=== PATIENT | male | born 1960 | race Caucasian/White ===

== ENCOUNTER 2018-01-10 11:28 | Emergency (ER) | payer BC, MEDICAID ==
--- NOTE | 2018-01-10 14:42 | RAD ---
HISTORY: Subacute trauma, visual changes COMPARISONS: None TECHNIQUE: Multiple contiguous axial CT scans were obtained of the head without intravenous contrast. FINDINGS: HEMORRHAGE/INFARCT: There is no hemorrhage or acute infarct. MASSES/SHIFT: There is no mass or shift. EXTRA-AXIAL SPACES: There are no extra-axial fluid collections. SULCI AND VENTRICLES: The sulci and ventricles are normal in size and position for the patient's stated age. CEREBRUM: There are no focal parenchymal abnormalities. BRAINSTEM: There are no focal parenchymal abnormalities. CEREBELLUM: There are no focal parenchymal abnormalities. VESSELS: The vessels are grossly normal. PARANASAL SINUSES: The paranasal sinuses are clear. ORBITS: The orbits are unremarkable. BONES AND SOFT TISSUE: No bone or soft tissue abnormalities are noted. OTHER: None IMPRESSION: NO ACUTE INTRACRANIAL PATHOLOGY.
--- NOTE | 2018-01-10 15:02 | UC ---
Que Martines Jennifer, scrib[facility] MD on 01/10/18 at 1333 . Headache HPI - HPI Summary HPI Summary: In Room: The patient is a 57 year old male who presents with floaters and flashing light to his vision after falling two weeks ago. The patient reports no loss of consciousness when he fell. He states that a few days after falling, he had a slight, dull headache that usually worsened at night. However, over time, the floaters and flashing light got worse in his left eye. He describes the floaters are varied and can look like small half circles or lines. He occasionally sees the flashes of light in his peripheral vision and in certain situations, but it has decreased in frequency. The patient used saline eyedrops , which helped. He adds that sunglasses and cheater glasses sometimes help, but the symptoms havent completely gone away. The patient additionally complains of some cramping in his lower abdomen, especially after a meal. MD Note: Vital signs stable. BP elevated. 5/10 discomfort, headache. Nurse note: "floaters" and yellow flashes to vision and dull intermittent PERALTA, to left and lateral head and eyes, post head injury approx 2 weeks ago to back of head. symptoms more prone to night-time. Great fatigue. deies dizziness.FLoaters improved with cheater glasses. - History Of Current Complaint Chief Complaint: UCHeadInjury Stated Complaint: EYE COMPLAINT Time Seen by Provider: 01/10/18 13:23 Hx Obtained From: Patient Onset/Duration: Sudden Onset, Lasting Weeks - one week, Still Present Onset Of Symptoms: Gradual, Still Present Initially Headache Was: Mild Currently Pain Is: Mild Pain Intensity: 5 Pain Scale Used: 0-10 Numeric Timing: Intermittent, Lasting: - worsens at night Character: Dull Aggravating Factor(s): Nothing Allevating Factor(s): Nothing Associated Signs And Symptoms: Positive: Other (Noted In Comments) - sees "floaters" and "flashing lights" in his peripheral vision of left eye; dull headache; lower abdominal cramping - Allergies/Home Medications Allergies/Adverse Reactions: Allergies Allergy/AdvReac Type Severity Reaction Status Date / Time Penicillins Allergy hives, Verified 01/10/18 12:02 difficulty breathing Home Medications: Home Medications NK [No Home Medications Reported] 01/10/18 [History Confirmed 01/10/18] PMH/Surg Hx/FS Hx/Imm Hx Previously Healthy: Yes - NEG: HTN, DM GI/ History: Other Other GI/ History: IBS - Surgical History Surgical History: None - Family History Known Family History: Positive: Other - [place] - father - Social History Occupation: Unemployed Lives: Alone Alcohol Use: Rare Substance Use Type: None Smoking Status (MU): Never Smoked Tobacco Review of Systems Eyes: Other - sees "floaters" and "flashing light" in peripheral vision of left eye Gastrointestinal: Abdominal Pain - Cramping Neurological: Headache - Dull, worsens at night All Other Systems Reviewed And Are Negative: Yes Physical Exam - Summary Physical Exam Summary: Appearance: The patient is well-appearing, is in no pain distress, and is well- nourished. Eyes: EYE EXAM SHOWED NO EVIDENCE OF INJURY. FUNDUS WAS GROSSLY NORMAL, WAS THE REMAINDER OF THE EYE EXAM. HEAD: SLIGHT TENDERNESS OVER THE LEFT OCCIPITAL. ENT: The hearing is grossly normal, the pharynx is normal, and the TMs are normal. There is no muffled or hoarse voice. Neck: The neck is supple and there is no lymphadenopathy. Respiratory: The chest is nontender. The lungs are clear, there are normal breath sounds, and there is no respiratory distress. Cardiovascular: Heart is regular rate and rhythm. There is no murmur. Abdomen: The abdomen is soft and nontender. There is no organomegaly. Bowel sounds: present Musculoskeletal: Strength is intact. The patient moves all extremities. Neurological: The patient is alert. Psychological: The patient displays age appropriate behavior Skin: Negative for rashes. Triage Information Reviewed: Yes Vital Signs: Initial Vital Signs Temp 99 F 01/10/18 11:53 Pulse 71 01/10/18 11:53 Resp 16 01/10/18 11:53 BP 154/96 01/10/18 11:53 Pulse Ox 98 01/10/18 11:53 Vital Signs Reviewed: Yes Headache Course/Dx - Course Course Of Treatment: This is a 57 year old male with a history of closed head trauma without LOC, who comes in complains of floaters and some flashing lights in his left eye. The possibility of retinal detachment cant be ruled out. His CT Brain was normal. I discussed with the patient the need for follow up with ophthalmology. Hypertensive BP reading (154/96); patient referred to Dr. Sidhu now. Patient will drive there now. No home medications reported. - Differential Dx/Diagnosis Provider Diagnoses: Closed head trauma; visual disturbance of the left eye Discharge - Sign-Out/Discharge Documenting (check all that apply): Discharge - Discharge Plan Condition: Stable Disposition: HOME Patient Education Materials: Blurred Vision (ED), Visual Floaters (ED) [place]errals[place] [facility] [place]Outside] Additional Instructions: Your blood pressure reading today was 154/96, indicating HYPERTENSION/ PREHYPERTENSION. Establish with a new primary care provider and follow-up within 4 weeks for blood pressure readings and further evaluation. ~If you cant find a provider, try to check your blood pressure on your own and see if its above 120/80. If so , follow up for further evaluation and treatment. IF YOU NEED A HEALTH CARE PROVIDER CALL THERON CARLOS AT [facility] [place]: [phone] WE DISCUSSED: 1. I suspect you had a mild concussion when you fell. There is NO evidence of bleeding in your brain. 2. You are having floaters and flashes particularly in your left eye. This needs follow up with an doll eye setter. Call Dr. Sidhu: [phone] now. You MAY HAVE A RETINAL DETACHMENT. - Billing Disposition and Condition Condition: STABLE Disposition: HOME The documentation as recorded by the Que arevalo Jennifer accurately reflects the service I personally performed and the decisions made by me, Marc Gupta MD.
== END 2018-01-10 15:00 | disposition home or self-care (01) ==
LOC: UCEAST 11:28
DX: S09.90XA Unspecified injury of head, initial encounter (principal); W19.XXXA Unspecified fall, initial encounter; Y92.9 Unspecified place or not applicable; H53.9 Unspecified visual disturbance; Z88.0 Allergy status to penicillin
CPT/HCPCS: 70450; 99202; G0463

== ENCOUNTER 2018-06-20 16:50 | Emergency (ER) | payer OTHER ==
[2018-06-20 19:54] LABS: Urine Appearance Turbid; Urine Blood 2+ (Negative); Urine Color Yellow; Urine Ketones Negative (Negative); Urine Protein 2+(100 mg/dL) (Negative); Urine Red Blood Cell 3+(>10/hpf) (Absent); Urine Specific Gravity 1.009 (1.010-1.030); Urine Urobilinogen Negative (Negative); Urine White Blood Cell 3+(>20/hpf) (Absent)
[2018-06-20 20:08] LABS: EGFR Non-African American 78.8 (>60)
[2018-06-20] MEDS ORDERED: NS 0.9% 1000 ML* 1,000 ML IV ONE (20:12)
[2018-06-20] MEDS ORDERED: cefTRIAXone(*) 1 GM in NS 0.9% 50 ML* 50 ML IVPB ONE (20:20)
--- NOTE | 2018-06-20 20:21 | ED ---
Complaint/Male - History of Current Complaint Chief Complaint: EDUrogenitalProblems Time Seen by Provider: 06/20/18 19:07 - Allergies/Home Medications Allergies/Adverse Reactions: Allergies Allergy/AdvReac Type Severity Reaction Status Date / Time Penicillins Allergy hives, Verified 01/10/18 12:02 difficulty breathing PMH/Surg Hx/FS Hx/Imm Hx Infectious Disease History: No Infectious Disease History: Denies: Traveled Outside the [place] in Last 30 Days - Family History Known Family History: Positive: Other - [place] - father - Social History Alcohol Use: Rare Substance Use Type: Reports: None Smoking Status (MU): Never Smoked Tobacco Physical Exam Vital Signs On Initial Exam: Initial Vitals Temp Pulse Resp BP Pulse Ox 99 F 81 16 126/101 99 06/20/18 17:10 06/20/18 17:10 06/20/18 17:10 06/20/18 17:10 06/20/18 17:10 Diagnostics - Vital Signs Vital Signs Temp Pulse Resp BP Pulse Ox 06/20/18 17:10 99 F 81 16 126/101 99 - Laboratory Lab Results: Lab Results 06/20/18 06/20/18 Range/Units 19:30 19:43 Sodium 138 (135-145) mmol/L Potassium 3.9 (3.5-5.0) mmol/L Chloride 106 (101-111) mmol/L Carbon Dioxide 27 (22-32) mmol/L Anion Gap 5 (2-11) mmol/L BUN 8 (6-24) mg/dL Creatinine 0.98 (0.67-1.17) mg/dL Est GFR ( Amer) 95.4 (>60) Est GFR (Non-Af Amer) 78.8 (>60) BUN/Creatinine Ratio 8.2 (8-20) Glucose 85 (70-100) mg/dL Calcium 8.5 L (8.6-10.3) mg/dL Total Bilirubin 0.20 (0.2-1.0) mg/dL AST 12 L (13-39) U/L ALT 14 (7-52) U/L Alkaline Phosphatase 65 (34-104) U/L Total Protein 6.3 L (6.4-8.9) g/dL Albumin 3.3 (3.2-5.2) g/dL Globulin 3.0 (2-4) g/dL Albumin/Globulin Ratio 1.1 (1-3) Urine Color Yellow Urine Appearance Turbid Urine pH 5.0 (5-9) Ur Specific [place] 1.009 L (1.010-1.030) Urine Protein 2+(100 mg/dl) A (Negative) Urine Ketones Negative (Negative) Urine Blood 2+ A (Negative) Urine Nitrate Negative (Negative) Urine Bilirubin Negative (Negative) Urine Urobilinogen Negative (Negative) Ur Leukocyte Esterase 3+ A (Negative) Urine WBC (Auto) 3+(>20/hpf) A (Absent) Urine RBC (Auto) 3+(>10/hpf) A (Absent) Urine Bacteria Absent (Absent) Urine Glucose Negative (Negative) Urine Ascorbic Acid * A (Negative) Result Diagrams: 06/20/18 19:43 Lab Statement: Any lab studies that have been ordered have been reviewed, and results considered in the medical decision making process.
[2018-06-20 20:28] LABS: ABS Basophils 0.2 10^3/ul (0-0.2); ABS Eosinophils 0.1 10^3/ul (0-0.6); ABS Lymphocytes 2.2 10^3/ul (1.0-4.8); ABS Neutrophils 9.9 10^3/ul (1.5-7.7); ABS Nucleated RBC 0 10^3/ul; Eosinophil % 0.8 % (0-6); Hematocrit 32 % (42-52); Lymphocyte % 16.7 % (25-47); Mean Corpuscular HGB Conc 31 g/dl (31-36); Mean Corpuscular Hemoglobin 23 pg (27-31); Mean Corpuscular Volume 73 fL (80-94); Mean Platelet Volume 7.7 um3 (7.4-10.4); Nucleated Red Blood Cells % 0; Platelet Count 523 10^3/ul (150-450); Red Blood Count 4.45 10^6/ul (4.00-5.40); Red Cell Distribution Width 16 % (10.5-15); White Blood Count 13.4 10^3/ul (3.5-10.8)
--- NOTE | 2018-06-20 21:37 | ED ---
GI/ HPI - HPI Summary HPI Summary: Patient is a 58-year-old male who presents emergency department for ongoing urinary symptoms. Patient states he's been having ongoing symptoms of dysuria, frequency, hematuria over the last 3 weeks. Pt. states he saw his doctor and was placed on Cipro and then a course of macrobid. Pt. states he finished macrobid last week. Pt. states his PCP has schedule him for an outpt. kidney u/ s. Pt. presents tonight because he is still having dysuria and hematuria. He denies fever, chills, N/V. Pt. denies past medical history. He denies abdominal or flank pain. Symptoms are moderate in severity. No current modifying factors . - History of Current Complaint Chief Complaint: EDUrogenitalProblems Time Seen by Provider: 06/20/18 19:07 Stated Complaint: BLOOD IN URINE Hx Obtained From: Patient Pain Intensity: 0 - Allergy/Home Medications Allergies/Adverse Reactions: Allergies Allergy/AdvReac Type Severity Reaction Status Date / Time Penicillins Allergy hives, Verified 01/10/18 12:02 difficulty breathing PMH/Surg Hx/FS Hx/Imm Hx Previously Healthy: Yes Infectious Disease History: No Infectious Disease History: Denies: Traveled Outside the [place] in Last 30 Days - Family History Known Family History: Positive: Other - [place] - father - Social History Occupation: Employed Full-time Lives: Alone Alcohol Use: Rare Substance Use Type: Reports: None Smoking Status (MU): Never Smoked Tobacco Review of Systems Constitutional: Negative Negative: Fever, Chills Cardiovascular: Negative Respiratory: Negative Gastrointestinal: Negative Negative: Abdominal Pain, Vomiting, Diarrhea, Nausea Positive: burning, dysuria, frequency, hematuria. Negative: flank pain Neurological: Negative All Other Systems Reviewed And Are Negative: Yes Physical Exam Triage Information Reviewed: Yes Vital Signs On Initial Exam: Initial Vitals Temp Pulse Resp BP Pulse Ox 99 F 81 16 126/101 99 06/20/18 17:10 06/20/18 17:10 06/20/18 17:10 06/20/18 17:10 06/20/18 17:10 Vital Signs Reviewed: Yes Appearance: Positive: Well-Appearing - Pt. sitting up in chair in NAD. Pleasant. Mother present. Skin: Positive: Warm, Dry Head/Face: Positive: Normal Head/Face Inspection Eyes: Positive: Normal, EOMI Respiratory/Lung Sounds: Positive: Clear to Auscultation, Breath Sounds Present Cardiovascular: Positive: Normal, RRR Abdomen Description: Positive: Nontender, Soft. Negative: CVA Tenderness (R), CVA Tenderness (L) Neurological: Positive: Normal, CN Intact II-III Psychiatric: Positive: Affect/Mood Appropriate Diagnostics - Vital Signs Vital Signs Temp Pulse Resp BP Pulse Ox 06/20/18 21:22 100.5 F 76 16 142/87 99 06/20/18 17:10 99 F 81 16 126/101 99 - Laboratory Lab Results: Lab Results 06/20/18 06/20/18 06/20/18 Range/Units 19:30 19:43 19:43 WBC 13.4 H (3.5-10.8) 10^3/ul RBC 4.45 (4.00-5.40) 10^6/ul Hgb 10.0 L (14.0-18.0) g/dl Hct 32 L (42-52) % MCV 73 L (80-94) fL MCH 23 L (27-31) pg MCHC 31 (31-36) g/dl RDW 16 H (10.5-15) % Plt Count 523 H (150-450) 10^3/ul MPV 7.7 (7.4-10.4) um3 Neut % (Auto) 73.8 (38-83) % Lymph % (Auto) 16.7 L (25-47) % [place] % (Auto) 7.6 H (0-7) % Eos % (Auto) 0.8 (0-6) % Baso % (Auto) 1.1 (0-2) % Absolute Neuts (auto) 9.9 H (1.5-7.7) 10^3/ul Absolute Lymphs (auto) 2.2 (1.0-4.8) 10^3/ul Absolute Monos (auto) 1.0 H (0-0.8) 10^3/ul Absolute Eos (auto) 0.1 (0-0.6) 10^3/ul Absolute Basos (auto) 0.2 (0-0.2) 10^3/ul Absolute Nucleated RBC 0 10^3/ul Nucleated RBC % 0 Microcytosis 2+ Sodium 138 (135-145) mmol/L Potassium 3.9 (3.5-5.0) mmol/L Chloride 106 (101-111) mmol/L Carbon Dioxide 27 (22-32) mmol/L Anion Gap 5 (2-11) mmol/L BUN 8 (6-24) mg/dL Creatinine 0.98 (0.67-1.17) mg/dL Est GFR ( Amer) 95.4 (>60) Est GFR (Non-Af Amer) 78.8 (>60) BUN/Creatinine Ratio 8.2 (8-20) Glucose 85 (70-100) mg/dL Calcium 8.5 L (8.6-10.3) mg/dL Total Bilirubin 0.20 (0.2-1.0) mg/dL AST 12 L (13-39) U/L ALT 14 (7-52) U/L Alkaline Phosphatase 65 (34-104) U/L Total Protein 6.3 L (6.4-8.9) g/dL Albumin 3.3 (3.2-5.2) g/dL Globulin 3.0 (2-4) g/dL Albumin/Globulin Ratio 1.1 (1-3) Urine Color Yellow Urine Appearance Turbid Urine pH 5.0 (5-9) Ur Specific [place] 1.009 L (1.010-1.030) Urine Protein 2+(100 mg/dl) A (Negative) Urine Ketones Negative (Negative) Urine Blood 2+ A (Negative) Urine Nitrate Negative (Negative) Urine Bilirubin Negative (Negative) Urine Urobilinogen Negative (Negative) Ur Leukocyte Esterase 3+ A (Negative) Urine WBC (Auto) 3+(>20/hpf) A (Absent) Urine RBC (Auto) 3+(>10/hpf) A (Absent) Urine Bacteria Absent (Absent) Urine Glucose Negative (Negative) Urine Ascorbic Acid * A (Negative) Result Diagrams: 06/20/18 19:43 06/20/18 19:43 Lab Statement: Any lab studies that have been ordered have been reviewed, and results considered in the medical decision making process. GIGU Course/Dx - Course Course Of Treatment: Pt. presenting to the ER for ongoing urinary symptoms. Initial temperature is 99F, HR 81, BP elevated at 126/101. Clinically pt. is nontoxic and well appearing. Will check basic labs and urine. He has no flank or abd. pain. CBC shows leukocytosis of 13.4, H and H 10 and 32. CMP unremarkable other than mildly low Ca of 8.5. U/A is showsing elevated RBC, WBCs and luekocytes. Urine culture from 06/02 is growing e. coli. Based on culture will give a dose of IV rocephinan liter of NSS. 2121: Results discussed with pt. Repeat VS show low grade fever of 100.5F. Given failed outpt. antibx, fever, leukocytois advised pt. that admission for IV antibx and further evaluation would be in pt.'s best interest. Pt. states that he has a cat at home he has to take care of and that he would prefer to go home after IV antibx and try another course of PO antibx. Repeat temp is increasing. Concern for early sepsis. Strongly advised pt. to stay for admission. Pt. has decision making capacity and understands going home tonight the tooth systemic infection and . Patient states that he you will plan on taking his To his mother's house and return to the ER for admission later. Will have patient sign out AMA. - Diagnoses Differential Diagnoses - Male: Sepsis, Ureteral Calculi, Urinary Tract Infection Provider Diagnoses: UTI (urinary tract infection), Fever Discharge - Sign-Out/Discharge Documenting (check all that apply): Patient Departure - Discharge Plan Condition: Stable Disposition: AGAINST MEDICAL ADVICE Prescriptions: Cephalexin CAP* [Keflex CAP*] 500 mg PO QID #40 cap Patient Education Materials: Urinary Tract Infection in Men (ED) Referrals: Teddy Brody MD [Primary Care Provider] - Additional Instructions: It was recommended that you be admitted to the hospital tonight to continue IV antibiotics and for further evaluation Pick Antibiotic prescription first thing tomorrow morning and start as directed Call your family doctor tomorrow for a close follow-up appointment Increase fluids Tylenol or Motrin for fever as directed Return to the ER for ongoing fever, vomiting, increased pain - Billing Disposition and Condition Condition: STABLE Disposition: Against Medical Advice
[2018-06-20 22:24] VITALS: BP 141/77
== END 2018-06-20 22:31 | disposition left against medical advice (07) ==
LOC: ED 16:50
DX: N39.0 Urinary tract infection, site not specified (principal); R50.9 Fever, unspecified; R30.0 Dysuria
CPT/HCPCS: 36415; 80053; 81003; 81015; 85025; 86618; 87077; 87086; 87186; 96365; 99282; J0696

== ENCOUNTER 2018-06-21 01:53 | Emergency (ER) | payer OTHER ==
--- NOTE | 2018-06-21 03:57 | ED ---
GI/ HPI - HPI Summary HPI Summary: 58-year-old male presents for admission after or evaluation earlier in the night and found to have urinary tract infection. He states that for several days after discontinuing treatment for Escherichia coli UTI he began having symptoms again. He also noticed there is debris in his urine. He recently was on Macrobid for this. He has never had any pain in his abdomen or back. He was given a dose of IV Rocephin earlier tonight and then left AMA so he can take care of some things at home. He denies any chest pain, shortness of breath or vomiting. He has not had any history for cancers or kidney stone. He states that he only felt a brief episode where he had some shakes and chills and was found to have a fever then. He has no similar feelings now in his temperature on arrival was normal. - History of Current Complaint Chief Complaint: EDUrogenitalProblems Time Seen by Provider: 06/21/18 03:36 Stated Complaint: UROGENITAL PROBLEMS Hx Obtained From: Patient Timing: Intermittent Pain Intensity: 0 - Allergy/Home Medications Allergies/Adverse Reactions: Allergies Allergy/AdvReac Type Severity Reaction Status Date / Time bee venom protein (honey bee) Allergy Hives/Diff. Verified 06/21/18 02:52 Breathing/I tching Penicillins Allergy hives, Verified 06/21/18 01:58 difficulty breathing PMH/Surg Hx/FS Hx/Imm Hx Previously Healthy: Yes - recent Escherichia coli UTI - Immunization History Date of Tetanus Vaccine: unk Date of Influenza Vaccine: fall 2016 Infectious Disease History: No Infectious Disease History: Denies: Traveled Outside the [place] in Last 30 Days - Family History Known Family History: Positive: Other - [place] - father - Social History Occupation: Employed Full-time Alcohol Use: Rare Substance Use Type: Reports: None Smoking Status (MU): Never Smoked Tobacco Review of Systems Negative: Fever, Chills Negative: Chest Pain Negative: Abdominal Pain, Vomiting Positive: burning, dysuria. Negative: frequency, flank pain, hematuria All Other Systems Reviewed And Are Negative: Yes Physical Exam Triage Information Reviewed: Yes Vital Signs On Initial Exam: Initial Vitals Temp Pulse Resp BP Pulse Ox 97.8 F 85 16 116/75 98 06/21/18 01:58 06/21/18 01:58 06/21/18 01:58 06/21/18 01:58 06/21/18 01:58 Vital Signs Reviewed: Yes Appearance: Positive: Well-Appearing, No Pain Distress, Well-Nourished Skin: Positive: Warm, Skin Color Reflects Adequate Perfusion, Dry Eyes: Positive: Normal ENT: Positive: Normal ENT inspection Neck: Positive: Supple, Nontender Cardiovascular: Positive: RRR Abdomen Description: Positive: Nontender, No Organomegaly Male Genital Exam: Positive: Normal Genitalia, Other - Circumcised Musculoskeletal: Positive: Normal, Strength/ROM Intact, Other - No CVA tenderness Neurological: Positive: Normal, Sensory/Motor Intact, Alert, Oriented to Person Place, Time Psychiatric: Positive: Normal AVPU Assessment: Alert Diagnostics - Vital Signs Vital Signs Temp Pulse Resp BP Pulse Ox 06/21/18 01:58 97.8 F 85 16 116/75 98 - Laboratory Lab Statement: Any lab studies that have been ordered have been reviewed, and results considered in the medical decision making process. GIGU Course/Dx - Course Course Of Treatment: Well appearing patient with dirty urine earlier and elevated white blood cell count. His temperature is normal and he is in no distress. He is already been given Rocephin tonight. He will follow up closely with his primary care physician also was referred to urology in case urinary debris persist. In that case he may need cystoscopy or further imaging. The patient has no abdominal pain or flank pain that might be consistent with pyelonephritis or renal colic. - Diagnoses Differential Diagnoses - Male: Other - UTI, prostatitis, bladder mass, kidney mass, Provider Diagnoses: Acute urinary tract infection Discharge - Sign-Out/Discharge Documenting (check all that apply): Patient Departure - Discharge Plan Condition: Improved Disposition: HOME Prescriptions: Ciprofloxacin TAB* [Cipro 500 MG TAB*] 500 mg PO BID #42 tab Patient Education Materials: Urinary Tract Infection in Men (ED) Referrals: Gamaliel Ivy MD [Medical Doctor] - Teddy Brody MD [Primary Care Provider] - Additional Instructions: Call for an appointment with the urologist first thing in the morning. Drink plenty of fluids. Cranberry juice may help. Return with blood in the urine, abdominal pain, vomiting, fevers, worse or other concerns as discussed. Do not fill the cephalexin medication. Fill the ciprofloxacin. - Billing Disposition and Condition Condition: IMPROVED Disposition: Home - Attestation Statements Document Initiated by Adilsone: No
[2018-06-21 04:27] VITALS: BP 0/0
== END 2018-06-21 04:20 | disposition home or self-care (01) ==
LOC: ED 01:53
DX: N39.0 Urinary tract infection, site not specified (principal); B96.20 Unspecified Escherichia coli [E. coli] as the cause of diseases classified elsewhere; Z88.0 Allergy status to penicillin
CPT/HCPCS: 99282

== ENCOUNTER 2019-07-24 18:13 | Emergency (ER) | payer OTHER ==
[2019-07-24 19:39] LABS: ABS Lymphocytes 0.4 10^3/ul (1.0-4.8); ABS Monocytes 0.4 10^3/ul (0-0.8); Eosinophil % 0.3 %; Hematocrit 36 % (42-52); Hemoglobin 12.4 g/dL (14.0-18.0); Lymphocyte % 6.3 %; Mean Corpuscular HGB Conc 34 g/dL (31-36); Mean Corpuscular Hemoglobin 30 pg (27-31); Mean Corpuscular Volume 86 fL (80-94); Mean Platelet Volume 6.9 fL (7.4-10.4); Nucleated Red Blood Cells % 0.1; Platelet Count 323 10^3/uL (150-450); Red Blood Count 4.19 10^6 /uL (4.18-5.48); Red Cell Distribution Width 16 % (10-15); White Blood Count 6.8 10^3/uL (3.5-10.8)
[2019-07-24 19:54] LABS: Albumin 3.7 g/dL (3.2-5.2); Albumin/Globulin Ratio 1.4 (1-3); BUN/Creatinine Ratio 9.1 (8-20); C Reactive Protein 16.84 mg/L (<8.01); Calcium 8.7 mg/dL (8.6-10.3); EGFR African American 52.5 (>60); EGFR Non-African American 43.4 (>60); Globulin 2.6 g/dL (2-4); Potassium 3.9 mmol/L (3.5-5.0); Total Bilirubin 0.4 mg/dL (0.2-1.0); Total Protein 6.3 g/dL (6.4-8.9)
[2019-07-24 20:37] VITALS: BP 106/60
[2019-07-24 22:22] LABS: Urine Appearance Turbid; Urine Bacteria 1+ (Absent); Urine Bilirubin Negative (Negative); Urine Blood 3+ (Negative); Urine Color Yellow; Urine Glucose Negative (Negative); Urine Ketones Negative (Negative); Urine Nitrite Negative (Negative); Urine Protein 2+(100 mg/dL) (Negative); Urine Red Blood Cell 3+(>10/hpf) (Absent); Urine Urobilinogen Negative (Negative); Urine White Blood Cell 3+(>20/hpf) (Absent)
[2019-07-24] MEDS ORDERED: Cephalexin CAP* 500 MG PO ONE (22:39)
--- NOTE | 2019-07-24 22:52 | ED ---
HPI Febrile Illness - HPI Summary HPI Summary: Patient with history of colon cancer on chemotherapy currently complains of fever up to 102 today. Denies any pain, symptoms of illness, including cough, sore throat, CP, PERALTA, SOB, N/V/D, abdominal pain, change in urine, change in BM. - History of Current Complaint Chief Complaint: EDFever Time Seen by Provider: 07/24/19 21:25 Hx Obtained From: Patient Onset/Duration: Started Hours Ago Timing: Intermittent, Lasting Hours Initial Severity: Moderate Current Severity: None Pain Intensity: 0 Pain Scale Used: 0-10 Numeric Aggravating Factors: Unknown Associated Signs and Symptoms: Negative - Allergy/Home Medications Allergies/Adverse Reactions: Allergies Allergy/AdvReac Type Severity Reaction Status Date / Time amoxicillin Allergy Intermediate Fever Verified 04/29/19 09:03 bee venom protein (honey bee) Allergy Hives/Diff. Verified 04/29/19 09:03 Breathing/I tching Penicillins Allergy hives, Verified 04/29/19 09:03 difficulty breathing Home Medications: Home Medications Biotin 5,000 mcg PO DAILY 07/25/19 [History Confirmed 07/25/19] Gabapentin [Neurontin] 100 mg PO TID PRN 07/25/19 [History Confirmed 07/25/19] Pantoprazole Sodium 20 mg PO DAILY 07/25/19 [History Confirmed 07/25/19] Sertraline HCl [Zoloft] 50 mg PO DAILY 07/25/19 [History Confirmed 07/25/19] PMH/Surg Hx/FS Hx/Imm Hx Endocrine/Hematology History: Denies: Hx Diabetes Cardiovascular History: Denies: Hx Hypertension, Hx Pacemaker/ICD History: Denies: Hx Renal Disease Sensory History: Denies: Hx Hearing Aid Opthamlomology History: Denies: Hx Legally Blind EENT History: Denies: Hx Deafness Neurological History: Denies: Hx Dementia Psychiatric History: Denies: Hx Panic Disorder - Cancer History Cancer Type, Location and Year: malignant neoplasm of sigmoid colon - Surgical History Surgery Procedure, Year, and Place: [place] - Immunization History Date of Tetanus Vaccine: unk Date of Influenza Vaccine: fall 2016 Infectious Disease History: No Infectious Disease History: Denies: Traveled Outside the [place] in Last 30 Days - Family History Known Family History: Positive: Other - [place] - father - Social History Alcohol Use: None Substance Use Type: Reports: None Smoking Status (MU): Never Smoked Tobacco Review of Systems Positive: Fever Eyes: Negative ENT: Negative Cardiovascular: Negative Respiratory: Negative Gastrointestinal: Negative Genitourinary: Negative Musculoskeletal: Negative Skin: Negative Neurological: Negative Psychological: Normal All Other Systems Reviewed And Are Negative: Yes Physical Exam Triage Information Reviewed: Yes Vital Signs On Initial Exam: Initial Vitals Temp Pulse Resp BP Pulse Ox 100.9 F 133 20 135/97 98 07/24/19 18:13 07/24/19 18:13 07/24/19 18:13 07/24/19 18:13 07/24/19 18:13 Vital Signs Reviewed: Yes Appearance: Positive: Well-Appearing Skin: Positive: Warm Head/Face: Positive: Normal Head/Face Inspection Eyes: Positive: Normal ENT: Positive: Normal ENT inspection Neck: Positive: Supple Respiratory/Lung Sounds: Positive: Clear to Auscultation Cardiovascular: Positive: Normal Abdomen Description: Positive: Nontender Musculoskeletal: Positive: Normal Neurological: Positive: Normal Psychiatric: Positive: Normal AVPU Assessment: Alert - [place] Coma Scale Best Eye Response: 4 - Spontaneous Best Motor Response: 6 - Obeys Commands Best Verbal Response: 5 - Oriented Coma Scale Total: 15 Procedures - Sedation Patient Received Moderate/Deep Sedation with Procedure: No Diagnostics - Vital Signs Vital Signs Temp Pulse Resp BP Pulse Ox 07/24/19 20:25 99.2 F 91 16 106/60 97 07/24/19 18:13 100.9 F 133 20 135/97 98 - Laboratory Lab Results: Lab Results 07/24/19 07/24/19 07/24/19 Range/Units 19:28 19:28 19:28 WBC 6.8 (3.5-10.8) 10^3/uL RBC 4.19 (4.18-5.48) 10^6 /uL Hgb 12.4 L (14.0-18.0) g/dL Hct 36 L (42-52) % MCV 86 (80-94) fL MCH 30 (27-31) pg MCHC 34 (31-36) g/dL RDW 16 H (10-15) % Plt Count 323 (150-450) 10^3/uL MPV 6.9 L (7.4-10.4) fL Neut % (Auto) 87.1 % Lymph % (Auto) 6.3 % Real % (Auto) 6.0 % Eos % (Auto) 0.3 % Baso % (Auto) 0.3 % Absolute Neuts (auto) 6.0 (1.5-7.7) 10^3/ul Absolute Lymphs (auto) 0.4 L (1.0-4.8) 10^3/ul Absolute Monos (auto) 0.4 (0-0.8) 10^3/ul Absolute Eos (auto) 0.0 (0-0.6) 10^3/ul Absolute Basos (auto) 0.0 (0-0.2) 10^3/ul Absolute Nucleated RBC 0.0 10^3/ul Nucleated RBC % 0.1 Sodium 131 L (135-145) mmol/L Potassium 3.9 (3.5-5.0) mmol/L Chloride 100 L (101-111) mmol/L Carbon Dioxide 23 (22-32) mmol/L Anion Gap 8 (2-11) mmol/L BUN 15 (6-24) mg/dL Creatinine 1.64 H (0.67-1.17) mg/dL Est GFR ( Amer) 52.5 (>60) Est GFR (Non-Af Amer) 43.4 (>60) BUN/Creatinine Ratio 9.1 (8-20) Glucose 111 H (70-100) mg/dL Lactic Acid 1.8 (0.5-2.0) mmol/L Calcium 8.7 (8.6-10.3) mg/dL Total Bilirubin 0.40 (0.2-1.0) mg/dL AST 15 (13-39) U/L ALT 19 (7-52) U/L Alkaline Phosphatase 108 H (34-104) U/L C-Reactive Protein 16.84 H (<8.01) mg/L Total Protein 6.3 L (6.4-8.9) g/dL Albumin 3.7 (3.2-5.2) g/dL Globulin 2.6 (2-4) g/dL Albumin/Globulin Ratio 1.4 (1-3) Lipase 21 (11.0-82.0) U/L Urine Color Urine Appearance Urine pH (5-9) Ur Specific [place] (1.010-1.030) Urine Protein (Negative) Urine Ketones (Negative) Urine Blood (Negative) Urine Nitrate (Negative) Urine Bilirubin (Negative) Urine Urobilinogen (Negative) Ur Leukocyte Esterase (Negative) Urine WBC (Auto) (Absent) Urine RBC (Auto) (Absent) Urine Bacteria (Absent) Hyaline Casts (Absent) Urine Glucose (Negative) 07/24/19 Range/Units 22:05 WBC (3.5-10.8) 10^3/uL RBC (4.18-5.48) 10^6 /uL Hgb (14.0-18.0) g/dL Hct (42-52) % MCV (80-94) fL MCH (27-31) pg MCHC (31-36) g/dL RDW (10-15) % Plt Count (150-450) 10^3/uL MPV (7.4-10.4) fL Neut % (Auto) % Lymph % (Auto) % Real % (Auto) % Eos % (Auto) % Baso % (Auto) % Absolute Neuts (auto) (1.5-7.7) 10^3/ul Absolute Lymphs (auto) (1.0-4.8) 10^3/ul Absolute Monos (auto) (0-0.8) 10^3/ul Absolute Eos (auto) (0-0.6) 10^3/ul Absolute Basos (auto) (0-0.2) 10^3/ul Absolute Nucleated RBC 10^3/ul Nucleated RBC % Sodium (135-145) mmol/L Potassium (3.5-5.0) mmol/L Chloride (101-111) mmol/L Carbon Dioxide (22-32) mmol/L Anion Gap (2-11) mmol/L BUN (6-24) mg/dL Creatinine (0.67-1.17) mg/dL Est GFR ( Amer) (>60) Est GFR (Non-Af Amer) (>60) BUN/Creatinine Ratio (8-20) Glucose (70-100) mg/dL Lactic Acid (0.5-2.0) mmol/L Calcium (8.6-10.3) mg/dL Total Bilirubin (0.2-1.0) mg/dL AST (13-39) U/L ALT (7-52) U/L Alkaline Phosphatase (34-104) U/L C-Reactive Protein (<8.01) mg/L Total Protein (6.4-8.9) g/dL Albumin (3.2-5.2) g/dL Globulin (2-4) g/dL Albumin/Globulin Ratio (1-3) Lipase (11.0-82.0) U/L Urine Color Yellow Urine Appearance Turbid Urine pH 5.0 (5-9) Ur Specific [place] 1.010 (1.010-1.030) Urine Protein 2+(100 mg/dl) A (Negative) Urine Ketones Negative (Negative) Urine Blood 3+ A (Negative) Urine Nitrate Negative (Negative) Urine Bilirubin Negative (Negative) Urine Urobilinogen Negative (Negative) Ur Leukocyte Esterase 3+ A (Negative) Urine WBC (Auto) 3+(>20/hpf) A (Absent) Urine RBC (Auto) 3+(>10/hpf) A (Absent) Urine Bacteria 1+ A (Absent) Hyaline Casts Present A (Absent) Urine Glucose Negative (Negative) Result Diagrams: 07/24/19 19:28 07/24/19 19:28 Lab Statement: Any lab studies that have been ordered have been reviewed, and results considered in the medical decision making process. Course/Dx - Course Course Of Treatment: Patient with history of colon cancer on chemotherapy currently complains of fever up to 102 today. Denies any pain, symptoms of illness, including cough, sore throat, CP, PERALTA, SOB, N/V/D, abdominal pain, change in urine, change in BM. Initially febrile and tachycardic. Both self resolved without medications. Vital signs otherwise within normal limits. Sodium 131. Creatinine 1.64. Labs otherwise unremarkable or a patient baseline. UA positive for UTI. Rx for Keflex by mouth. Advised patient to continue to monitor sodium.Patient has close follow-up with oncology. - Diagnoses Provider Diagnoses: Fever, UTI (urinary tract infection), Hyponatremia Discharge ED - Sign-Out/Discharge Documenting (check all that apply): Patient Departure - Discharge Plan Condition: Stable Disposition: HOME Patient Education Materials: Urinary Tract Infection in Men (ED) Referrals: Aldair Delaney MD [Primary Care Provider] - Additional Instructions: Take antibiotics as directed. Follow up with your oncologist. Return to the ED for any new or worsening symptoms. - Billing Disposition and Condition Condition: STABLE Disposition: Home - Attestation Statements Provider Attestation: I was available for consult. This patient was seen by the [facility]. The patient was not presented to, seen by, or examined by me. Julio Nicholas MD
--- NOTE | 2019-07-25 09:41 | ED ---
Imaging and Labs Follow Up Follow Up Type: Labs/Cultures Labs/Culture Result: Aerobic blood cultures x 2 + for gram negative bacilli Patient Communication/Plan: Case discussed with Dr. Araujo at 0938. She will review case and plans to likely direct admit pt. for IV antibiotics. Provider Diagnoses: Fever, UTI (urinary tract infection)
== END 2019-07-24 22:59 | disposition home or self-care (01) ==
LOC: ED 18:13
DX: R50.9 Fever, unspecified (principal); N39.0 Urinary tract infection, site not specified; E87.1 Hypo-osmolality and hyponatremia; Z85.038 Personal history of other malignant neoplasm of large intestine; Z79.899 Other long term (current) drug therapy; Z88.1 Allergy status to other antibiotic agents; Z88.0 Allergy status to penicillin
CPT/HCPCS: 36415; 80053; 81003; 81015; 83605; 83690; 85025; 86140; 87040; 87077; 87086; 87186; 87205; 99282; A9270-GY

== ENCOUNTER 2019-07-25 12:58 | Inpatient (IN) | payer OTHER ==
[2019-07-25] MEDS ORDERED: NS 0.9% 1000 ML** 1,000 ML IV SCH (13:45)
[2019-07-25] MEDS ORDERED: Acetaminophen TAB* 325 MG PO PRN (13:45)
[2019-07-25] MEDS: Enoxaparin(*) 40 MG/0.4 ML SYR SUBCUT SCH (16:02)
[2019-07-25] MEDS: Gabapentin CAP(*) 100 MG PO PRN (22:10)
[2019-07-25] MEDS: Oxybutynin TAB* 5 MG PO SCH (22:10)
[2019-07-25] MEDS: Zolpidem TAB* 10 MG PO PRN (22:10)
[2019-07-25] MEDS: traMADol TAB* 50 MG PO PRN (22:11)
[2019-07-26] MEDS: Zolpidem TAB* 10 MG PO PRN (00:35)
[2019-07-26 07:47] LABS: ABS Eosinophils 0.1 10^3/ul (0-0.6); ABS Lymphocytes 1.1 10^3/ul (1.0-4.8); ABS Monocytes 0.6 10^3/ul (0-0.8); ABS Neutrophils 3.5 10^3/ul (1.5-7.7); Eosinophil % 1.2 %; Hematocrit 28 % (42-52); Hemoglobin 9.6 g/dL (14.0-18.0); Lymphocyte % 20.8 %; Mean Corpuscular HGB Conc 34 g/dL (31-36); Mean Corpuscular Hemoglobin 30 pg (27-31); Mean Corpuscular Volume 87 fL (80-94); Nucleated Red Blood Cells % 0.1; Platelet Count 213 10^3/uL (150-450); Red Blood Count 3.23 10^6 /uL (4.18-5.48); Red Cell Distribution Width 17 % (10-15); White Blood Count 5.3 10^3/uL (3.5-10.8)
[2019-07-26 08:02] LABS: Albumin/Globulin Ratio 1.4 (1-3); BUN/Creatinine Ratio 9.4 (8-20); Calcium 8.4 mg/dL (8.6-10.3); EGFR African American 77.5 (>60); Globulin 2.1 g/dL (2-4); Total Bilirubin 0.4 mg/dL (0.2-1.0); Total Protein 5.1 g/dL (6.4-8.9)
[2019-07-26] MEDS: Sertraline* 50 MG TAB PO SCH (08:08)
[2019-07-26] MEDS: Ferrous Sulfate TAB* 325 MG PO SCH (08:08)
[2019-07-26] MEDS: Pantoprazole TAB * 40 MG TAB PO SCH (08:08)
[2019-07-26] MEDS: Oxybutynin TAB* 5 MG PO SCH ×2 (08:09→22:00)
[2019-07-26] MEDS: cefTRIAXone(*) 2 GM in NS 0.9% 100 ML* 100 ML IVPB SCH (12:12)
[2019-07-26] MEDS: Enoxaparin(*) 40 MG/0.4 ML SYR SUBCUT SCH (13:50)
[2019-07-26] MEDS: traMADol TAB* 50 MG PO PRN ×2 (16:48→22:00)
[2019-07-26] MEDS: Gabapentin CAP(*) 100 MG PO PRN ×2 (16:50→22:00)
[2019-07-26] MEDS ORDERED: Polyethylene Glycol 3350* 17 GM PACKET PO PRN (22:53)
[2019-07-27] MEDS: Zolpidem TAB* 10 MG PO PRN (00:35)
[2019-07-27] MEDS ORDERED: NS 0.9% 100 ML* 100 ML ONE (09:35)
[2019-07-27] MEDS: Ferrous Sulfate TAB* 325 MG PO SCH (09:42)
[2019-07-27] MEDS: Sertraline* 50 MG TAB PO SCH (09:42)
[2019-07-27] MEDS: Pantoprazole TAB * 40 MG TAB PO SCH (09:43)
[2019-07-27] MEDS: Oxybutynin TAB* 5 MG PO SCH (09:43)
[2019-07-27 10:06] VITALS: BP 108/60
[2019-07-27] MEDS: cefTRIAXone(*) 2 GM in NS 0.9% 100 ML* 100 ML IVPB SCH (14:11)
--- NOTE | 2019-09-04 19:33 | DS ---
DISCHARGE SUMMARY: DATE OF ADMISSION: 07/25/19 DATE OF DISCHARGE: 07/27/19 DISCHARGE DIAGNOSES: 1. Bacteremia with Escherichia coli. 2. Metastatic colon cancer. 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 4. Longstanding chemotherapy. 5. Chronic urinary tract infection with Escherichia coli. DISCHARGE MEDICATIONS: Included: 1. Tramadol 50 mg q.6 hours p.r.n. 2. Ferrous sulfate 325 mg per day. 3. Tylenol 650 q.4 hours p.r.n. 4. Oxybutynin 5 mg b.i.d. 5. Zolpidem 10 mg at bedtime p.r.n. 6. Biotin 5000 mcg daily. 7. Gabapentin 100 mg t.i.d. p.r.n. 8. Pantoprazole 20 mg daily. 9. Sertraline 50 mg daily. 10. Cephalexin 500 mg 4 times a day. NOTE: The patient was asked to stop his Bactrim. HOSPITAL COURSE: The patient has had a longstanding history of metastatic colorectal cancer with known fistula to the bladder. This dates back over 1 year. He has had chronic infections, almost all with E. coli. He called the office the night prior to admission and presented to the emergency room with a temperature of 100.9. He was not neutropenic and was sent home from the emergency room with a plan to change antibiotics to Keflex overnight. Two anaerobic bottles were positive for Gram-negative bacilli. The patient was then instructed to come back to the office. He was feeling fine without a fever , was not hypertensive. He was started in the hospital on ceftriaxone 2 g IV daily. Cultures were repeated. He remained afebrile. By this time, 3 out of 4 blood cultures were positive for Gram- negative bacilli. Sensitivities came back showing fairly broadly sensitive E. coli and the patient was able to be discharged home on Keflex without further complications. DISCHARGE DISPOSITION: Home in stable condition. [id number]/[facility] #: [id number] [facility]
== END 2019-07-27 17:12 | disposition home or self-care (01) | DRG 463 ==
LOC: MED 15:11
PROVIDERS: ADMIT Internal Medicine Hematology & Oncology; ATTEND Internal Medicine Hematology & Oncology
DX: N39.0 Urinary tract infection, site not specified (principal); C18.9 Malignant neoplasm of colon, unspecified; N32.1 Vesicointestinal fistula; C78.89 Secondary malignant neoplasm of other digestive organs; R78.81 Bacteremia; B96.20 Unspecified Escherichia coli [E. coli] as the cause of diseases classified elsewhere; Z88.0 Allergy status to penicillin; Z91.018 Allergy to other foods; Z87.440 Personal history of urinary (tract) infections
CPT/HCPCS: 36415; 80053; 85025; 87040; 99222; A9270-GY; J0696; J1642; J1650

== ENCOUNTER 2020-12-03 10:53 | Inpatient (IN) ==
[2020-12-03] MEDS ORDERED: Magnesium Sulfate 2 gm BAG 2 GM/50 ML BAG ONE (10:57)
[2020-12-03 11:54] LABS: ABS Neutrophils 12.8 10^3/ul (1.5-7.7); Hematocrit 22 % (42-52); Hemoglobin 6.9 g/dL (14.0-18.0); Mean Corpuscular HGB Conc 32 g/dL (31-36); Mean Corpuscular Hemoglobin 24 pg (27-31); Mean Corpuscular Volume 75 fL (80-94); Mean Platelet Volume 8.3 fL (7.4-10.4); Platelet Count 782 10^3/uL (150-450); Red Cell Distribution Width 24 % (10-15); White Blood Count 15.7 10^3/uL (3.5-10.8)
[2020-12-03 12:15] LABS: Albumin 2.4 g/dL (3.2-5.2); Albumin/Globulin Ratio 0.8 (1-3); BUN/Creatinine Ratio 11.9 (8-20); Calcium 7.9 mg/dL (8.6-10.3); EGFR Non-African American 54.6 (>60); Globulin 2.9 g/dL (2-4); Magnesium 1.4 mg/dL (1.9-2.7); Potassium 2.9 mmol/L (3.5-5.0); Total Bilirubin 0.3 mg/dL (0.2-1.0); Total Protein 5.3 g/dL (6.4-8.9)
[2020-12-03 12:19] LABS: Microcytosis 1+; Polychromasia 2+
[2020-12-03 12:20] LABS: Spherocytes 2+; Tear Drop Cells 2+
[2020-12-03 12:21] LABS: ABS Eosinophils 0.1 10^3/ul (0-0.6); ABS Lymphocytes 1.3 10^3/ul (1.0-4.8); ABS Monocytes 1.4 10^3/ul (0-0.8); Eosinophil % 0.6 %; Lymphocyte % 8.5 %; Nucleated Red Blood Cells % 0.1
[2020-12-03 12:28] LABS: Carcinoembryonic Antigen 2.7 ng/mL (0.1-5.0)
[2020-12-03 12:36] LABS: Urine Appearance Turbid; Urine Bilirubin Negative (Negative); Urine Blood 3+ (Negative); Urine Color Amber; Urine Glucose Negative (Negative); Urine Ketones Negative (Negative); Urine Nitrite Positive (Negative); Urine Protein 2+(100 mg/dL) (Negative); Urine Specific Gravity 1.008 (1.010-1.030); Urine Urobilinogen Negative (Negative)
[2020-12-03] MEDS ORDERED: Magnesium Sulfate 2 gm BAG 2 GM/50 ML BAG IVPB ONE (12:37)
[2020-12-03] MEDS ORDERED: Ondansetron ODT 4 mg TAB 4 MG TAB SL PRN (12:37)
[2020-12-03 12:40] LABS: Urine Bacteria 3+ (Absent); Urine Red Blood Cell 3+(>10/hpf) (Absent); Urine White Blood Cell 3+(>20/hpf) (Absent)
[2020-12-03] MEDS: Enoxaparin 40 MG/0.4 ML SYR SUBCUT SCH (15:28)
[2020-12-03] MEDS ORDERED: Iodixanol (CONTRAST) 320 MG/ML 100 ML SDV IV ONE (16:07)
[2020-12-03] MEDS: NS 0.9% w/ 40 Meq KCL 1000 ML 1,000 ML IV SCH (23:56)
[2020-12-04 06:41] LABS: ABS Basophils 0.1 10^3/ul (0-0.2); ABS Eosinophils 0.1 10^3/ul (0-0.6); ABS Lymphocytes 1.3 10^3/ul (1.0-4.8); ABS Monocytes 1.4 10^3/ul (0-0.8); ABS Neutrophils 12.4 10^3/ul (1.5-7.7); Eosinophil % 0.4 %; Hematocrit 22 % (42-52); Lymphocyte % 8.5 %; Mean Corpuscular HGB Conc 32 g/dL (31-36); Mean Corpuscular Hemoglobin 24 pg (27-31); Mean Corpuscular Volume 76 fL (80-94); Mean Platelet Volume 7.8 fL (7.4-10.4); Nucleated Red Blood Cells % 0.1; Platelet Count 734 10^3/uL (150-450); Red Blood Count 2.94 10^6 /uL (4.18-5.48); Red Cell Distribution Width 24 % (10-15); White Blood Count 15.2 10^3/uL (3.5-10.8)
[2020-12-04 06:55] LABS: Albumin 2.1 g/dL (3.2-5.2); Albumin/Globulin Ratio 0.8 (1-3); BUN/Creatinine Ratio 7.5 (8-20); Calcium 7.5 mg/dL (8.6-10.3); EGFR African American 66.6 (>60); Globulin 2.7 g/dL (2-4); Potassium 3.3 mmol/L (3.5-5.0); Total Bilirubin 0.3 mg/dL (0.2-1.0); Total Protein 4.8 g/dL (6.4-8.9)
[2020-12-04] MEDS: Enoxaparin 40 MG/0.4 ML SYR SUBCUT SCH (13:31)
[2020-12-05] MEDS: NS 0.9% w/ 40 Meq KCL 1000 ML 1,000 ML IV SCH ×2 (00:25→21:44)
[2020-12-05 05:38] LABS: Hematocrit 29 % (42-52); Mean Corpuscular HGB Conc 31 g/dL (31-36); Mean Corpuscular Hemoglobin 25 pg (27-31); Mean Corpuscular Volume 78 fL (80-94); Mean Platelet Volume 7.9 fL (7.4-10.4); Platelet Count 901 10^3/uL (150-450); Red Blood Count 3.68 10^6 /uL (4.18-5.48); Red Cell Distribution Width 24 % (10-15); White Blood Count 30.3 10^3/uL (3.5-10.8)
[2020-12-05 05:56] LABS: Albumin 2.4 g/dL (3.2-5.2); Albumin/Globulin Ratio 0.8 (1-3); BUN/Creatinine Ratio 6.4 (8-20); Calcium 7.8 mg/dL (8.6-10.3); EGFR African American 62.3 (>60); EGFR Non-African American 51.4 (>60); Potassium 4.4 mmol/L (3.5-5.0); Total Bilirubin 0.4 mg/dL (0.2-1.0); Total Protein 5.4 g/dL (6.4-8.9)
[2020-12-05 07:33] LABS: Polychromasia 1+
[2020-12-05 07:34] LABS: ABS Basophils 0.1 10^3/ul (0-0.2); ABS Lymphocytes 2.5 10^3/ul (1.0-4.8); ABS Neutrophils 25.7 10^3/ul (1.5-7.7); Eosinophil % 0.1 %; Lymphocyte % 8.3 %
[2020-12-05] MEDS: Enoxaparin 40 MG/0.4 ML SYR SUBCUT SCH (13:54)
[2020-12-06 06:01] LABS: Magnesium 1.1 mg/dL (1.9-2.7)
[2020-12-06 06:32] LABS: ABS Basophils 0.1 10^3/ul (0-0.2); ABS Lymphocytes 1.3 10^3/ul (1.0-4.8); ABS Monocytes 1.9 10^3/ul (0-0.8); ABS Neutrophils 23.7 10^3/ul (1.5-7.7); Hematocrit 25 % (42-52); Hemoglobin 7.9 g/dL (14.0-18.0); Lymphocyte % 4.9 %; Mean Corpuscular HGB Conc 32 g/dL (31-36); Mean Corpuscular Hemoglobin 25 pg (27-31); Mean Corpuscular Volume 78 fL (80-94); Mean Platelet Volume 7.2 fL (7.4-10.4); Platelet Count 730 10^3/uL (150-450); Red Blood Count 3.17 10^6 /uL (4.18-5.48); Red Cell Distribution Width 25 % (10-15)
[2020-12-06] MEDS ORDERED: Magnesium Sulf 4 GM/100 ML IV 4,000 MG/100 ML BAG IVPB ONE (08:49)
[2020-12-06] MEDS: NS 0.9% w/ 40 Meq KCL 1000 ML 1,000 ML IV SCH (08:52)
[2020-12-06 09:00] LABS: Calcium 7.6 mg/dL (8.6-10.3)
[2020-12-06 09:03] LABS: Potassium 5.1 mmol/L (3.5-5.0)
[2020-12-06 09:06] LABS: BUN/Creatinine Ratio 6.6 (8-20); EGFR African American 64.9 (>60); EGFR Non-African American 53.6 (>60)
[2020-12-06] MEDS: Enoxaparin 40 MG/0.4 ML SYR SUBCUT SCH (12:55)
[2020-12-07] MEDS: NS 0.9% 1000 ml BAG 1,000 ML IV SCH ×2 (04:26→14:23)
[2020-12-07 08:39] LABS: Hematocrit 26 % (42-52); Hemoglobin 8.4 g/dL (14.0-18.0); Mean Corpuscular HGB Conc 32 g/dL (31-36); Mean Corpuscular Hemoglobin 26 pg (27-31); Mean Corpuscular Volume 80 fL (80-94); Mean Platelet Volume 7.7 fL (7.4-10.4); Platelet Count 634 10^3/uL (150-450); Red Blood Count 3.29 10^6 /uL (4.18-5.48); Red Cell Distribution Width 25 % (10-15); White Blood Count 33.8 10^3/uL (3.5-10.8)
[2020-12-07 08:54] LABS: Albumin 2.1 g/dL (3.2-5.2); Albumin/Globulin Ratio 0.7 (1-3); BUN/Creatinine Ratio 7.7 (8-20); Calcium 7.7 mg/dL (8.6-10.3); EGFR African American 55.4 (>60); EGFR Non-African American 45.8 (>60); Globulin 2.9 g/dL (2-4); Magnesium 1.6 mg/dL (1.9-2.7); Potassium 4.7 mmol/L (3.5-5.0); Total Bilirubin 0.6 mg/dL (0.2-1.0)
[2020-12-07 09:04] LABS: ABS Basophils 0.1 10^3/ul (0-0.2); ABS Lymphocytes 1.3 10^3/ul (1.0-4.8); ABS Monocytes 1.7 10^3/ul (0-0.8); ABS Neutrophils 30.7 10^3/ul (1.5-7.7); Acanthocytes 1+; Eosinophil % 0.1 %; Lymphocyte % 3.9 %; Polychromasia 1+; Schistocytes 1+
[2020-12-07] MEDS: Enoxaparin 40 MG/0.4 ML SYR SUBCUT SCH (13:09)
[2020-12-08] MEDS: NS 0.9% 1000 ml BAG 1,000 ML IV SCH ×2 (00:14→11:24)
[2020-12-08 05:50] LABS: Calcium 7.5 mg/dL (8.6-10.3); Total Bilirubin 0.5 mg/dL (0.2-1.0)
[2020-12-08 05:54] LABS: Hematocrit 24 % (42-52); Hemoglobin 7.9 g/dL (14.0-18.0); Mean Corpuscular HGB Conc 33 g/dL (31-36); Mean Corpuscular Hemoglobin 26 pg (27-31); Mean Corpuscular Volume 79 fL (80-94); Mean Platelet Volume 7.7 fL (7.4-10.4); Platelet Count 566 10^3/uL (150-450); Red Blood Count 3.03 10^6 /uL (4.18-5.48); Red Cell Distribution Width 25 % (10-15); White Blood Count 32.6 10^3/uL (3.5-10.8)
[2020-12-08 05:56] LABS: Albumin/Globulin Ratio 0.7 (1-3); BUN/Creatinine Ratio 7.7 (8-20); EGFR African American 55.8 (>60); EGFR Non-African American 46.1 (>60); Globulin 2.8 g/dL (2-4); Total Protein 4.8 g/dL (6.4-8.9)
[2020-12-08 06:40] LABS: ABS Monocytes 1.7 10^3/ul (0-0.8); ABS Neutrophils 29.9 10^3/ul (1.5-7.7); Eosinophil % 0.1 %; Lymphocyte % 3.1 %
[2020-12-08] MEDS: Enoxaparin 40 MG/0.4 ML SYR SUBCUT SCH (14:30)
[2020-12-09] MEDS: NS 0.9% 1000 ml BAG 1,000 ML IV SCH (01:54)
[2020-12-09 06:31] LABS: Hematocrit 23 % (42-52); Hemoglobin 7.2 g/dL (14.0-18.0); Mean Corpuscular HGB Conc 31 g/dL (31-36); Mean Corpuscular Hemoglobin 25 pg (27-31); Mean Corpuscular Volume 79 fL (80-94); Mean Platelet Volume 7.7 fL (7.4-10.4); Platelet Count 544 10^3/uL (150-450); Red Cell Distribution Width 25 % (10-15)
[2020-12-09 06:36] LABS: Albumin 1.9 g/dL (3.2-5.2); Albumin/Globulin Ratio 0.7 (1-3); BUN/Creatinine Ratio 6.5 (8-20); Calcium 7.5 mg/dL (8.6-10.3); EGFR African American 45.8 (>60); EGFR Non-African American 37.8 (>60); Globulin 2.8 g/dL (2-4); Magnesium 1.5 mg/dL (1.9-2.7); Potassium 4.1 mmol/L (3.5-5.0); Total Bilirubin 0.6 mg/dL (0.2-1.0); Total Protein 4.7 g/dL (6.4-8.9)
[2020-12-09 07:16] LABS: ABS Basophils 0.1 10^3/ul (0-0.2); ABS Lymphocytes 1.3 10^3/ul (1.0-4.8); ABS Monocytes 1.6 10^3/ul (0-0.8); Eosinophil % 0.1 %; Lymphocyte % 3.7 %
[2020-12-09 07:19] LABS: Polychromasia 1+
[2020-12-09] MEDS: Enoxaparin 40 MG/0.4 ML SYR SUBCUT SCH ×2 (13:25→13:29)
[2020-12-10 00:52] LABS: Hematocrit 23 % (42-52); Hemoglobin 7.3 g/dL (14.0-18.0)
[2020-12-10 05:59] LABS: ABS Basophils 0.1 10^3/ul (0-0.2); ABS Lymphocytes 0.9 10^3/ul (1.0-4.8); ABS Monocytes 1.7 10^3/ul (0-0.8); ABS Neutrophils 34.8 10^3/ul (1.5-7.7); Hematocrit 26 % (42-52); Hemoglobin 8.1 g/dL (14.0-18.0); Lymphocyte % 2.3 %; Mean Corpuscular HGB Conc 32 g/dL (31-36); Mean Corpuscular Hemoglobin 26 pg (27-31); Mean Corpuscular Volume 80 fL (80-94); Mean Platelet Volume 7.3 fL (7.4-10.4); Platelet Count 549 10^3/uL (150-450); Red Blood Count 3.18 10^6 /uL (4.18-5.48); Red Cell Distribution Width 24 % (10-15); White Blood Count 37.4 10^3/uL (3.5-10.8)
[2020-12-10 06:15] LABS: Albumin/Globulin Ratio 0.7 (1-3); BUN/Creatinine Ratio 6.7 (8-20); Calcium 7.6 mg/dL (8.6-10.3); EGFR African American 36.7 (>60); EGFR Non-African American 30.3 (>60); Total Bilirubin 0.8 mg/dL (0.2-1.0)
[2020-12-10] MEDS: Enoxaparin 40 MG/0.4 ML SYR SUBCUT SCH (13:29)
[2020-12-10 14:02] LABS: Urine Appearance Turbid; Urine Bacteria 1+ (Absent); Urine Bilirubin Negative (Negative); Urine Blood 3+ (Negative); Urine Glucose Negative (Negative); Urine Ketones Negative (Negative); Urine Nitrite Positive (Negative); Urine Protein 2+(100 mg/dL) (Negative); Urine Red Blood Cell 3+(>10/hpf) (Absent); Urine Specific Gravity 1.004 (1.010-1.030); Urine Urobilinogen Negative (Negative); Urine White Blood Cell 3+(>20/hpf) (Absent)
[2020-12-10 16:15] LABS: Urine Color Amber
[2020-12-10] MEDS: cefTRIAXone 1 gm/50 mL NS BAG 1 GM/50 ML BAG IVPB SCH (18:00)
[2020-12-11 06:36] LABS: Hematocrit 25 % (42-52); Hemoglobin 7.7 g/dL (14.0-18.0); Mean Corpuscular HGB Conc 31 g/dL (31-36); Mean Corpuscular Hemoglobin 26 pg (27-31); Mean Corpuscular Volume 81 fL (80-94); Mean Platelet Volume 7.4 fL (7.4-10.4); Platelet Count 496 10^3/uL (150-450); Red Blood Count 3.02 10^6 /uL (4.18-5.48); Red Cell Distribution Width 24 % (10-15); White Blood Count 29.5 10^3/uL (3.5-10.8)
[2020-12-11 06:41] LABS: Albumin 1.9 g/dL (3.2-5.2); Albumin/Globulin Ratio 0.6 (1-3); BUN/Creatinine Ratio 6.9 (8-20); Calcium 7.5 mg/dL (8.6-10.3); EGFR African American 28.6 (>60); EGFR Non-African American 23.6 (>60); Potassium 3.8 mmol/L (3.5-5.0); Total Bilirubin 0.7 mg/dL (0.2-1.0); Total Protein 4.9 g/dL (6.4-8.9)
[2020-12-11 07:24] LABS: ABS Basophils 0.1 10^3/ul (0-0.2); ABS Lymphocytes 0.7 10^3/ul (1.0-4.8); ABS Monocytes 1.8 10^3/ul (0-0.8); ABS Neutrophils 26.8 10^3/ul (1.5-7.7); Eosinophil % 0.1 %; Lymphocyte % 2.5 %
[2020-12-11] MEDS: NS 0.9% 1000 ml BAG 1,000 ML IV SCH (11:39)
[2020-12-11] MEDS: Enoxaparin 40 MG/0.4 ML SYR SUBCUT SCH (14:35)
[2020-12-11] MEDS: cefTRIAXone 1 gm/50 mL NS BAG 1 GM/50 ML BAG IVPB SCH (17:09)
[2020-12-12 06:51] LABS: BUN/Creatinine Ratio 7.2 (8-20); Calcium 7.6 mg/dL (8.6-10.3); EGFR African American 24.3 (>60); EGFR Non-African American 20.1 (>60); Potassium 3.8 mmol/L (3.5-5.0)
[2020-12-12 08:34] LABS: ABS Lymphocytes 0.8 10^3/ul (1.0-4.8); ABS Monocytes 1.3 10^3/ul (0-0.8); ABS Neutrophils 21.2 10^3/ul (1.5-7.7); Eosinophil % 0.2 %; Hematocrit 23 % (42-52); Hemoglobin 7.3 g/dL (14.0-18.0); Lymphocyte % 3.4 %; Mean Corpuscular HGB Conc 32 g/dL (31-36); Mean Corpuscular Hemoglobin 26 pg (27-31); Mean Corpuscular Volume 80 fL (80-94); Mean Platelet Volume 7.6 fL (7.4-10.4); Platelet Count 467 10^3/uL (150-450); Red Blood Count 2.84 10^6 /uL (4.18-5.48); Red Cell Distribution Width 24 % (10-15); White Blood Count 23.3 10^3/uL (3.5-10.8)
[2020-12-12 10:57] LABS: Urine Appearance Turbid; Urine Bilirubin Negative (Negative); Urine Blood 3+ (Negative); Urine Color Yellow; Urine Glucose Negative (Negative); Urine Ketones Negative (Negative); Urine Nitrite Positive (Negative); Urine Protein 2+(100 mg/dL) (Negative); Urine Specific Gravity 1.005 (1.010-1.030); Urine Urobilinogen Negative (Negative)
[2020-12-12 11:05] LABS: Urine Bacteria Absent (Absent); Urine Red Blood Cell Trace(0-2/hpf) (Absent); Urine White Blood Cell 3+(>20/hpf) (Absent)
[2020-12-12] MEDS: Enoxaparin 40 MG/0.4 ML SYR SUBCUT SCH (15:33)
[2020-12-12] MEDS: cefTRIAXone 1 gm/50 mL NS BAG 1 GM/50 ML BAG IVPB SCH (19:41)
[2020-12-12] MEDS: NS 0.9% 1000 ml BAG 1,000 ML IV SCH (20:25)
[2020-12-13] MEDS: NS 0.9% 1000 ml BAG 1,000 ML IV SCH (06:17)
[2020-12-13 06:46] LABS: Hematocrit 24 % (42-52); Hemoglobin 7.5 g/dL (14.0-18.0); Mean Corpuscular HGB Conc 32 g/dL (31-36); Mean Corpuscular Hemoglobin 26 pg (27-31); Mean Corpuscular Volume 82 fL (80-94); Mean Platelet Volume 7.5 fL (7.4-10.4); Platelet Count 469 10^3/uL (150-450); Red Blood Count 2.89 10^6 /uL (4.18-5.48); Red Cell Distribution Width 24 % (10-15); White Blood Count 20.4 10^3/uL (3.5-10.8)
[2020-12-13 06:59] LABS: BUN/Creatinine Ratio 6.5 (8-20); Calcium 7.4 mg/dL (8.6-10.3); EGFR African American 20.3 (>60); EGFR Non-African American 16.8 (>60); Potassium 3.7 mmol/L (3.5-5.0)
[2020-12-13 07:28] LABS: ABS Lymphocytes 0.9 10^3/ul (1.0-4.8); ABS Monocytes 1.1 10^3/ul (0-0.8); ABS Neutrophils 18.3 10^3/ul (1.5-7.7); Acanthocytes 1+; Eosinophil % 0.2 %; Lymphocyte % 4.3 %; Polychromasia 1+; Schistocytes 1+
[2020-12-13] MEDS: cefTRIAXone 1 gm/50 mL NS BAG 1 GM/50 ML BAG IVPB SCH (18:11)
[2020-12-14 05:46] LABS: ABS Basophils 0.2 10^3/ul (0-0.2); ABS Eosinophils 0.1 10^3/ul (0-0.6); ABS Monocytes 1.3 10^3/ul (0-0.8); ABS Neutrophils 17.1 10^3/ul (1.5-7.7); Eosinophil % 0.3 %; Hematocrit 25 % (42-52); Hemoglobin 7.8 g/dL (14.0-18.0); Mean Corpuscular HGB Conc 31 g/dL (31-36); Mean Corpuscular Hemoglobin 26 pg (27-31); Mean Corpuscular Volume 83 fL (80-94); Mean Platelet Volume 7.7 fL (7.4-10.4); Platelet Count 493 10^3/uL (150-450); Red Cell Distribution Width 24 % (10-15); White Blood Count 19.7 10^3/uL (3.5-10.8)
[2020-12-14 05:50] LABS: BUN/Creatinine Ratio 5.9 (8-20); Calcium 7.6 mg/dL (8.6-10.3); EGFR African American 16.7 (>60); EGFR Non-African American 13.8 (>60); Potassium 3.9 mmol/L (3.5-5.0)
[2020-12-14 14:51] LABS: INR 2.54 (0.82-1.09)
[2020-12-14] MEDS ORDERED: Phytonadione Oral Solution 5 MG/25 ML UDC PO ONE (17:09)
[2020-12-14] MEDS: cefTRIAXone 1 gm/50 mL NS BAG 1 GM/50 ML BAG IVPB SCH (18:27)
[2020-12-15 05:43] LABS: ABS Basophils 0.1 10^3/ul (0-0.2); ABS Eosinophils 0.1 10^3/ul (0-0.6); ABS Monocytes 1.2 10^3/ul (0-0.8); ABS Neutrophils 15.6 10^3/ul (1.5-7.7); Eosinophil % 0.3 %; Hematocrit 24 % (42-52); Hemoglobin 7.7 g/dL (14.0-18.0); Lymphocyte % 5.3 %; Mean Corpuscular HGB Conc 31 g/dL (31-36); Mean Corpuscular Hemoglobin 26 pg (27-31); Mean Corpuscular Volume 82 fL (80-94); Mean Platelet Volume 7.4 fL (7.4-10.4); Platelet Count 495 10^3/uL (150-450); Red Blood Count 2.97 10^6 /uL (4.18-5.48); Red Cell Distribution Width 24 % (10-15); White Blood Count 17.9 10^3/uL (3.5-10.8)
[2020-12-15 05:43] LABS: INR 1.92 (0.82-1.09)
[2020-12-15 06:02] LABS: Albumin 1.9 g/dL (3.2-5.2); Albumin/Globulin Ratio 0.6 (1-3); Calcium 7.8 mg/dL (8.6-10.3); EGFR African American 15.6 (>60); EGFR Non-African American 12.9 (>60); Globulin 3.3 g/dL (2-4); Potassium 4.1 mmol/L (3.5-5.0); Total Bilirubin 0.5 mg/dL (0.2-1.0); Total Protein 5.2 g/dL (6.4-8.9)
[2020-12-15] MEDS ORDERED: fentaNYL 100 mcg/2 ml 50 MCG/ML VIAL ONE (07:26)
[2020-12-15] MEDS ORDERED: Midazolam 2 mg/2 ml VIAL 1 mg/ml 2 ml VIAL (2 mg) ONE (07:26)
[2020-12-15] MEDS ORDERED: Phytonadione Oral Solution 5 MG/25 ML UDC PO ONE (08:09)
[2020-12-15] MEDS: NS 0.9% 1000 ml BAG 1,000 ML IV SCH ×2 (12:13→23:08)
[2020-12-15] MEDS: cefTRIAXone 1 gm/50 mL NS BAG 1 GM/50 ML BAG IVPB SCH (17:59)
[2020-12-16] MEDS ORDERED: Morphine 2 MG/ML SYRINGE IV ONE (04:30)
[2020-12-16 07:08] LABS: INR 1.59 (0.82-1.09)
[2020-12-16 07:18] LABS: Albumin 2.1 g/dL (3.2-5.2); Albumin/Globulin Ratio 0.6 (1-3); EGFR African American 25.8 (>60); EGFR Non-African American 21.4 (>60); Globulin 3.6 g/dL (2-4); Potassium 4.1 mmol/L (3.5-5.0); Total Bilirubin 0.4 mg/dL (0.2-1.0); Total Protein 5.7 g/dL (6.4-8.9)
[2020-12-16 07:21] LABS: ABS Eosinophils 0.1 10^3/ul (0-0.6); ABS Monocytes 0.8 10^3/ul (0-0.8); ABS Neutrophils 12.6 10^3/ul (1.5-7.7); Eosinophil % 0.5 %; Hematocrit 27 % (42-52); Hemoglobin 8.5 g/dL (14.0-18.0); Mean Corpuscular HGB Conc 32 g/dL (31-36); Mean Corpuscular Hemoglobin 26 pg (27-31); Mean Corpuscular Volume 84 fL (80-94); Mean Platelet Volume 7.5 fL (7.4-10.4); Platelet Count 564 10^3/uL (150-450); Red Blood Count 3.21 10^6 /uL (4.18-5.48); Red Cell Distribution Width 24 % (10-15); White Blood Count 14.5 10^3/uL (3.5-10.8)
[2020-12-16] MEDS ORDERED: LORazepam 2 mg VIAL 1 ml IV PUSH ONE (09:00)
[2020-12-16] MEDS ORDERED: Lorazepam PYXIS KEY PRN (09:01)
[2020-12-16] MEDS ORDERED: Lorazepam PYXIS KEY ONE (09:03)
[2020-12-16] MEDS ORDERED: LORazepam 2 mg VIAL 1 ml ONE (09:03)
[2020-12-16] MEDS: D5W 1/2 NS 1000 ml BAG 1,000 ML IV SCH ×2 (11:59→22:59)
[2020-12-16] MEDS ORDERED: Midazolam 10 mg/10 ml VIAL 1 mg/ml 10 ml VIAL (10 mg) ONE (14:23)
[2020-12-16] MEDS ORDERED: fentaNYL 100 mcg/2 ml 50 MCG/ML VIAL ONE (14:23)
[2020-12-16] MEDS: cefTRIAXone 1 gm/50 mL NS BAG 1 GM/50 ML BAG IVPB SCH (17:51)
[2020-12-17 06:01] LABS: ABS Eosinophils 0.1 10^3/ul (0-0.6); ABS Lymphocytes 1.3 10^3/ul (1.0-4.8); ABS Monocytes 0.8 10^3/ul (0-0.8); ABS Neutrophils 10.3 10^3/ul (1.5-7.7); Eosinophil % 0.9 %; Hematocrit 26 % (42-52); Hemoglobin 8.3 g/dL (14.0-18.0); Lymphocyte % 10.1 %; Mean Corpuscular HGB Conc 32 g/dL (31-36); Mean Corpuscular Hemoglobin 26 pg (27-31); Mean Corpuscular Volume 82 fL (80-94); Mean Platelet Volume 7.4 fL (7.4-10.4); Platelet Count 580 10^3/uL (150-450); Red Blood Count 3.14 10^6 /uL (4.18-5.48); Red Cell Distribution Width 24 % (10-15); White Blood Count 12.6 10^3/uL (3.5-10.8)
[2020-12-17 06:18] LABS: Albumin 2.2 g/dL (3.2-5.2); Albumin/Globulin Ratio 0.6 (1-3); Calcium 7.7 mg/dL (8.6-10.3); EGFR African American 41.6 (>60); EGFR Non-African American 34.4 (>60); Globulin 3.6 g/dL (2-4); Potassium 3.4 mmol/L (3.5-5.0); Total Bilirubin 0.4 mg/dL (0.2-1.0); Total Protein 5.8 g/dL (6.4-8.9)
[2020-12-17] MEDS: KCL 20 MEQ/100 ML IVPREMIX 20 MEQ/100 ML BAG IV SCH ×2 (10:05→12:45)
[2020-12-17] MEDS: D5W 1/2 NS 1000 ml BAG 1,000 ML IV SCH ×2 (10:07→17:11)
[2020-12-17] MEDS: cefTRIAXone 1 gm/50 mL NS BAG 1 GM/50 ML BAG IVPB SCH (17:10)
[2020-12-18] MEDS: D5W 1/2 NS 1000 ml BAG 1,000 ML IV SCH (01:34)
[2020-12-18 06:41] LABS: ABS Eosinophils 0.1 10^3/ul (0-0.6); ABS Lymphocytes 1.1 10^3/ul (1.0-4.8); ABS Monocytes 0.7 10^3/ul (0-0.8); ABS Neutrophils 7.7 10^3/ul (1.5-7.7); Eosinophil % 1.4 %; Hematocrit 26 % (42-52); Hemoglobin 8.2 g/dL (14.0-18.0); Lymphocyte % 11.5 %; Mean Corpuscular HGB Conc 31 g/dL (31-36); Mean Corpuscular Hemoglobin 26 pg (27-31); Mean Corpuscular Volume 84 fL (80-94); Mean Platelet Volume 7.7 fL (7.4-10.4); Platelet Count 478 10^3/uL (150-450); Red Blood Count 3.12 10^6 /uL (4.18-5.48); Red Cell Distribution Width 24 % (10-15); White Blood Count 9.6 10^3/uL (3.5-10.8)
[2020-12-18 06:55] LABS: BUN/Creatinine Ratio 5.5 (8-20); Calcium 7.3 mg/dL (8.6-10.3); EGFR African American 51.9 (>60); EGFR Non-African American 42.9 (>60); Globulin 3.3 g/dL (2-4); Potassium 3.4 mmol/L (3.5-5.0); Total Protein 5.3 g/dL (6.4-8.9)
[2020-12-18 06:56] LABS: Albumin/Globulin Ratio 0.6 (1-3); Total Bilirubin 0.3 mg/dL (0.2-1.0)
[2020-12-18 07:03] LABS: Polychromasia 1+
[2020-12-18] MEDS: NS 0.9% 1000 ml BAG 1,000 ML IV SCH ×2 (09:17→20:15)
[2020-12-18] MEDS: KCL 20 MEQ/100 ML IVPREMIX 20 MEQ/100 ML BAG IV SCH ×3 (09:17→14:26)
[2020-12-18] MEDS: cefTRIAXone 1 gm/50 mL NS BAG 1 GM/50 ML BAG IVPB SCH (17:30)
[2020-12-19 05:42] LABS: Hematocrit 27 % (42-52); Hemoglobin 8.8 g/dL (14.0-18.0); Mean Corpuscular HGB Conc 32 g/dL (31-36); Mean Corpuscular Hemoglobin 26 pg (27-31); Mean Corpuscular Volume 81 fL (80-94); Mean Platelet Volume 6.9 fL (7.4-10.4); Platelet Count 554 10^3/uL (150-450); Red Blood Count 3.36 10^6 /uL (4.18-5.48); Red Cell Distribution Width 24 % (10-15); White Blood Count 14.3 10^3/uL (3.5-10.8)
[2020-12-19 05:50] LABS: Albumin 2.2 g/dL (3.2-5.2); Albumin/Globulin Ratio 0.6 (1-3); BUN/Creatinine Ratio 5.3 (8-20); Calcium 7.3 mg/dL (8.6-10.3); EGFR African American 57.1 (>60); EGFR Non-African American 47.2 (>60); Globulin 3.7 g/dL (2-4); Potassium 4.1 mmol/L (3.5-5.0); Total Bilirubin 0.4 mg/dL (0.2-1.0); Total Protein 5.9 g/dL (6.4-8.9)
[2020-12-19 06:56] LABS: ABS Basophils 0.1 10^3/ul (0-0.2); ABS Eosinophils 0.1 10^3/ul (0-0.6); ABS Lymphocytes 1.6 10^3/ul (1.0-4.8); ABS Monocytes 0.9 10^3/ul (0-0.8); ABS Neutrophils 11.5 10^3/ul (1.5-7.7); Eosinophil % 0.8 %; Lymphocyte % 11.1 %
[2020-12-19] MEDS: NS 0.9% 1000 ml BAG 1,000 ML IV SCH ×2 (10:30→21:16)
[2020-12-19] MEDS: cefTRIAXone 1 gm/50 mL NS BAG 1 GM/50 ML BAG IVPB SCH (17:53)
[2020-12-20 06:27] LABS: Hematocrit 23 % (42-52); Hemoglobin 7.5 g/dL (14.0-18.0); Mean Corpuscular HGB Conc 32 g/dL (31-36); Mean Corpuscular Hemoglobin 27 pg (27-31); Mean Corpuscular Volume 82 fL (80-94); Mean Platelet Volume 7.3 fL (7.4-10.4); Platelet Count 405 10^3/uL (150-450); Red Blood Count 2.84 10^6 /uL (4.18-5.48); Red Cell Distribution Width 24 % (10-15); White Blood Count 9.9 10^3/uL (3.5-10.8)
[2020-12-20 06:35] LABS: BUN/Creatinine Ratio 5.6 (8-20); EGFR African American 72.2 (>60); EGFR Non-African American 59.7 (>60); Potassium 3.4 mmol/L (3.5-5.0)
[2020-12-20 06:48] LABS: ABS Basophils 0.1 10^3/ul (0-0.2); ABS Eosinophils 0.2 10^3/ul (0-0.6); ABS Lymphocytes 1.4 10^3/ul (1.0-4.8); ABS Monocytes 0.8 10^3/ul (0-0.8); ABS Neutrophils 7.5 10^3/ul (1.5-7.7); Eosinophil % 1.5 %; Lymphocyte % 13.7 %
[2020-12-20] MEDS: NS 0.9% 1000 ml BAG 1,000 ML IV SCH (08:44)
[2020-12-20] MEDS ORDERED: Al Hydrox/Mg Hydrox/Simet LIQ 30 ML UDC PO PRN (12:57)
[2020-12-20] MEDS: cefTRIAXone 1 gm/50 mL NS BAG 1 GM/50 ML BAG IVPB SCH (18:05)
[2020-12-20] MEDS ORDERED: Potassium Chlor 20 meq TAB.ER PO ONE (21:30)
[2020-12-21 05:48] LABS: ABS Basophils 0.1 10^3/ul (0-0.2); ABS Eosinophils 0.1 10^3/ul (0-0.6); ABS Lymphocytes 1.8 10^3/ul (1.0-4.8); ABS Monocytes 0.8 10^3/ul (0-0.8); ABS Neutrophils 10.3 10^3/ul (1.5-7.7); Eosinophil % 1.1 %; Hematocrit 28 % (42-52); Hemoglobin 8.8 g/dL (14.0-18.0); Lymphocyte % 13.9 %; Mean Corpuscular HGB Conc 32 g/dL (31-36); Mean Corpuscular Hemoglobin 26 pg (27-31); Mean Corpuscular Volume 82 fL (80-94); Mean Platelet Volume 7.7 fL (7.4-10.4); Platelet Count 454 10^3/uL (150-450); Red Blood Count 3.35 10^6 /uL (4.18-5.48); Red Cell Distribution Width 23 % (10-15); White Blood Count 13.1 10^3/uL (3.5-10.8)
[2020-12-21 06:05] LABS: BUN/Creatinine Ratio 5.8 (8-20); Calcium 7.3 mg/dL (8.6-10.3); EGFR African American 74.3 (>60); EGFR Non-African American 61.4 (>60); Potassium 3.8 mmol/L (3.5-5.0)
[2020-12-21] MEDS ORDERED: Saline NASAL SPRAY 0.65% BTL BOTH NARES PRN (11:37)
[2020-12-21] MEDS: Psyllium PAK PO SCH (14:40)
[2020-12-21] MEDS: cefTRIAXone 1 gm/50 mL NS BAG 1 GM/50 ML BAG IVPB SCH (16:59)
[2020-12-22 06:42] LABS: ABS Basophils 0.1 10^3/ul (0-0.2); ABS Eosinophils 0.1 10^3/ul (0-0.6); ABS Lymphocytes 1.4 10^3/ul (1.0-4.8); ABS Monocytes 0.7 10^3/ul (0-0.8); Eosinophil % 1.3 %; Hematocrit 27 % (42-52); Hemoglobin 8.7 g/dL (14.0-18.0); Lymphocyte % 13.9 %; Mean Corpuscular HGB Conc 33 g/dL (31-36); Mean Corpuscular Hemoglobin 27 pg (27-31); Mean Corpuscular Volume 82 fL (80-94); Mean Platelet Volume 7.4 fL (7.4-10.4); Platelet Count 443 10^3/uL (150-450); Red Blood Count 3.25 10^6 /uL (4.18-5.48); Red Cell Distribution Width 23 % (10-15); White Blood Count 10.3 10^3/uL (3.5-10.8)
[2020-12-22 06:50] LABS: BUN/Creatinine Ratio 7.3 (8-20); Calcium 7.4 mg/dL (8.6-10.3); EGFR African American 82.9 (>60); EGFR Non-African American 68.5 (>60); Potassium 3.6 mmol/L (3.5-5.0)
[2020-12-22] MEDS: Psyllium PAK PO SCH (10:57)
[2020-12-22 11:39] VITALS: BP 133/81
== END 2020-12-22 15:30 | disposition home or self-care (01) | DRG 372 ==
LOC: CHOA 10:53 → MED 12:37
PROVIDERS: ADMIT Internal Medicine Hematology & Oncology; ATTEND Internal Medicine Hematology & Oncology

== ENCOUNTER 2021-11-23 12:05 | Inpatient (IN) ==
[2021-11-23 13:52] LABS: Hematocrit 22 % (42-52); Hemoglobin 6.7 g/dL (14.0-18.0); Mean Corpuscular HGB Conc 30 g/dL (31-36); Mean Corpuscular Hemoglobin 22 pg (27-31); Mean Corpuscular Volume 74 fL (80-94); Platelet Count 631 10^3/uL (150-450); Red Cell Distribution Width 29 % (10-15); White Blood Count 14.1 10^3/uL (3.5-10.8)
[2021-11-23 14:06] LABS: Albumin 1.9 g/dL (3.2-5.2); Albumin/Globulin Ratio 0.6 (1-3); C Reactive Protein 91.95 mg/L (<8.01); Calcium 7.5 mg/dL (8.6-10.3); Globulin 3.2 g/dL (2-4); Potassium 3.9 mmol/L (3.5-5.0); Total Bilirubin 0.4 mg/dL (0.2-1.0); Total Protein 5.1 g/dL (6.4-8.9); eGFR CKD-EPI 64.1 (>60)
[2021-11-23 14:39] LABS: Carcinoembryonic Antigen 58.8 ng/mL (0.1-5.0)
[2021-11-23 14:54] LABS: ABS Basophils 0.1 10^3/ul (0-0.2); ABS Lymphocytes 0.9 10^3/ul (1.0-4.8); ABS Monocytes 0.7 10^3/ul (0-0.8); ABS Neutrophils 12.4 10^3/ul (1.5-7.7); Lymphocyte % 6.7 %
[2021-11-23 15:10] LABS: Urine Appearance Turbid; Urine Bacteria 2+ (Absent); Urine Bilirubin Negative (Negative); Urine Blood 2+ (Negative); Urine Glucose Negative (Negative); Urine Ketones Negative (Negative); Urine Nitrite Negative (Negative); Urine Protein 2+(100 mg/dL) (Negative); Urine Red Blood Cell 3+(>10/hpf) (Absent); Urine Specific Gravity 1.019 (1.002-1.030); Urine Urobilinogen Negative (Negative); Urine White Blood Cell 3+(>20/hpf) (Absent)
[2021-11-23 16:19] LABS: Rapid COVID-19 Molecular Undetected (Undetected)
[2021-11-23] MEDS: Meropenem 1 GM PREMIX(*) 1 GM/50 ML BAG IV SCH ×2 (17:39→22:13)
[2021-11-23] MEDS: Ondansetron ODT 4 mg TAB 4 MG TAB SL PRN (17:50)
[2021-11-23 19:14] LABS: Urine Color Red
[2021-11-23] MEDS: Diphenoxylat/Atrop 2.5-0.025mg TAB PO SCH (19:59)
[2021-11-23] MEDS: NS 0.9% 1000 ml BAG 1,000 ML IV SCH (21:06)
[2021-11-23] MEDS: Morphine 2 MG/ML SYRINGE IV PRN (22:43)
[2021-11-24 05:34] LABS: Hematocrit 25 % (42-52); Hemoglobin 7.3 g/dL (14.0-18.0); Mean Corpuscular HGB Conc 30 g/dL (31-36); Mean Corpuscular Hemoglobin 23 pg (27-31); Mean Corpuscular Volume 77 fL (80-94); Mean Platelet Volume 7.2 fL (7.4-10.4); Platelet Count 557 10^3/uL (150-450); Red Blood Count 3.23 10^6 /uL (4.18-5.48); Red Cell Distribution Width 29 % (10-15); White Blood Count 12.4 10^3/uL (3.5-10.8)
[2021-11-24 05:52] LABS: Albumin 1.8 g/dL (3.2-5.2); Calcium 7.6 mg/dL (8.6-10.3); Total Bilirubin 0.5 mg/dL (0.2-1.0)
[2021-11-24 05:56] LABS: ABS Basophils 0.1 10^3/ul (0-0.2); ABS Lymphocytes 1.3 10^3/ul (1.0-4.8); ABS Monocytes 0.7 10^3/ul (0-0.8); ABS Neutrophils 10.3 10^3/ul (1.5-7.7); Eosinophil % 0.1 %; Lymphocyte % 10.7 %
[2021-11-24 05:58] LABS: Globulin 2.9 g/dL (2-4); Total Protein 4.7 g/dL (6.4-8.9); eGFR CKD-EPI 76.9 (>60)
[2021-11-24 05:59] LABS: Albumin/Globulin Ratio 0.6 (1-3); C Reactive Protein 95.38 mg/L (<8.01)
[2021-11-24] MEDS: Meropenem 1 GM PREMIX(*) 1 GM/50 ML BAG IV SCH ×3 (08:09→23:33)
[2021-11-24] MEDS: Diphenoxylat/Atrop 2.5-0.025mg TAB PO SCH ×2 (08:09→21:44)
[2021-11-24] MEDS: Morphine 2 MG/ML SYRINGE IV PRN ×2 (17:37→23:34)
[2021-11-25] MEDS: Meropenem 1 GM PREMIX(*) 1 GM/50 ML BAG IV SCH (08:23)
[2021-11-25] MEDS: Ondansetron ODT 4 mg TAB 4 MG TAB SL PRN ×2 (08:24→20:52)
[2021-11-25] MEDS: Diphenoxylat/Atrop 2.5-0.025mg TAB PO SCH ×2 (08:24→20:11)
[2021-11-25] MEDS: NS 0.9% 1000 ml BAG 1,000 ML IV SCH ×2 (09:18→23:46)
[2021-11-25] MEDS: Morphine 2 MG/ML SYRINGE IV PRN ×3 (10:41→18:33)
[2021-11-25] MEDS: cefTRIAXone 1 gm/50 mL NS BAG 1 GM/50 ML BAG IVPB SCH (11:42)
[2021-11-26] MEDS: Morphine 2 MG/ML SYRINGE IV PRN ×4 (00:31→21:33)
[2021-11-26 06:14] LABS: Hematocrit 24 % (42-52); Hemoglobin 7.1 g/dL (14.0-18.0); Mean Corpuscular HGB Conc 30 g/dL (31-36); Mean Corpuscular Hemoglobin 23 pg (27-31); Mean Corpuscular Volume 76 fL (80-94); Mean Platelet Volume 6.9 fL (7.4-10.4); Platelet Count 504 10^3/uL (150-450); Red Blood Count 3.11 10^6 /uL (4.18-5.48); Red Cell Distribution Width 29 % (10-15); White Blood Count 11.1 10^3/uL (3.5-10.8)
[2021-11-26 06:28] LABS: ABS Lymphocytes 1.6 10^3/ul (1.0-4.8); ABS Monocytes 0.8 10^3/ul (0-0.8); ABS Neutrophils 8.6 10^3/ul (1.5-7.7); Eosinophil % 0.3 %; Lymphocyte % 14.7 %
[2021-11-26 06:30] LABS: ALT 11 U/L (7-52); AST 17 U/L (13-39); Albumin < 1.7 g/dL (3.2-5.2); Albumin/Globulin Ratio 0.6 (1-3); Alkaline Phosphatase 431 U/L (35-149); Anion Gap 5 mmol/L (2-11); Blood Urea Nitrogen 9 mg/dL (6-24); CO2 Carbon Dioxide 24 mmol/L (22-32); Calcium 7.4 mg/dL (8.6-10.3); Chloride 107 mmol/L (101-111); Globulin 2.7 g/dL (2-4); Glucose 87 mg/dL (70-100); Potassium 4.1 mmol/L (3.5-5.0); Sodium 136 mmol/L (135-145); Total Protein 4.4 g/dL (6.4-8.9)
[2021-11-26] MEDS: Diphenoxylat/Atrop 2.5-0.025mg TAB PO SCH ×2 (08:49→19:42)
[2021-11-26] MEDS: cefTRIAXone 1 gm/50 mL NS BAG 1 GM/50 ML BAG IVPB SCH (10:34)
[2021-11-26] MEDS: NS 0.9% 1000 ml BAG 1,000 ML IV SCH (14:25)
[2021-11-27] MEDS: Ondansetron ODT 4 mg TAB 4 MG TAB SL PRN ×2 (08:54→20:05)
[2021-11-27] MEDS: Diphenoxylat/Atrop 2.5-0.025mg TAB PO SCH ×2 (08:54→20:05)
[2021-11-27] MEDS: cefTRIAXone 1 gm/50 mL NS BAG 1 GM/50 ML BAG IVPB SCH (11:26)
[2021-11-27 13:37] LABS: Hematocrit 26 % (42-52); Hemoglobin 8.1 g/dL (14.0-18.0); Mean Corpuscular HGB Conc 31 g/dL (31-36); Mean Corpuscular Hemoglobin 23 pg (27-31); Mean Corpuscular Volume 76 fL (80-94); Mean Platelet Volume 6.9 fL (7.4-10.4); Platelet Count 687 10^3/uL (150-450); Red Blood Count 3.47 10^6 /uL (4.18-5.48); Red Cell Distribution Width 29 % (10-15); White Blood Count 18.5 10^3/uL (3.5-10.8)
[2021-11-27] MEDS: Morphine 2 MG/ML SYRINGE IV PRN ×3 (13:43→21:58)
[2021-11-27 13:57] LABS: Albumin 1.8 g/dL (3.2-5.2); Albumin/Globulin Ratio 0.6 (1-3); Calcium 7.5 mg/dL (8.6-10.3); Globulin 3.2 g/dL (2-4); Potassium 4.1 mmol/L (3.5-5.0); Total Bilirubin 0.5 mg/dL (0.2-1.0); eGFR CKD-EPI 103.3 (>60)
[2021-11-27 14:29] LABS: ABS Basophils 0.3 10^3/ul (0-0.2); ABS Lymphocytes 2.6 10^3/ul (1.0-4.8); ABS Monocytes 1.1 10^3/ul (0-0.8); ABS Neutrophils 14.5 10^3/ul (1.5-7.7); Anisocytosis 2+; Eosinophil % 0.2 %; Lymphocyte % 13.8 %; Microcytosis 2+; Polychromasia 1+
[2021-11-27] MEDS: NS 0.9% 1000 ml BAG 1,000 ML IV SCH (17:25)
[2021-11-28] MEDS: diPHENhydraMINE 25 mg TAB PO PRN (00:49)
[2021-11-28] MEDS: Diphenoxylat/Atrop 2.5-0.025mg TAB PO SCH ×2 (09:01→21:26)
[2021-11-28] MEDS: Ondansetron ODT 4 mg TAB 4 MG TAB SL PRN ×2 (09:05→15:36)
[2021-11-28] MEDS: NS 0.9% 1000 ml BAG 1,000 ML IV SCH ×2 (09:11→22:51)
[2021-11-28] MEDS: cefTRIAXone 1 gm/50 mL NS BAG 1 GM/50 ML BAG IVPB SCH (11:32)
[2021-11-28] MEDS: Morphine 2 MG/ML SYRINGE IV PRN ×3 (11:36→21:27)
[2021-11-29] MEDS: Morphine 2 MG/ML SYRINGE IV PRN ×4 (05:13→19:42)
[2021-11-29] MEDS: Diphenoxylat/Atrop 2.5-0.025mg TAB PO SCH ×2 (08:23→22:49)
[2021-11-29] MEDS: cefTRIAXone 1 gm/50 mL NS BAG 1 GM/50 ML BAG IVPB SCH (10:49)
[2021-11-29] MEDS: NS 0.9% 1000 ml BAG 1,000 ML IV SCH (13:08)
[2021-11-30] MEDS: NS 0.9% 1000 ml BAG 1,000 ML IV SCH ×2 (01:18→14:23)
[2021-11-30 06:13] LABS: Hematocrit 25 % (42-52); Hemoglobin 7.5 g/dL (14.0-18.0); Mean Corpuscular HGB Conc 30 g/dL (31-36); Mean Corpuscular Hemoglobin 23 pg (27-31); Mean Corpuscular Volume 77 fL (80-94); Mean Platelet Volume 7.2 fL (7.4-10.4); Platelet Count 454 10^3/uL (150-450); Red Blood Count 3.22 10^6 /uL (4.18-5.48); Red Cell Distribution Width 30 % (10-15)
[2021-11-30 06:26] LABS: ALT 17 U/L (7-52); AST 25 U/L (13-39); Albumin < 1.7 g/dL (3.2-5.2); Albumin/Globulin Ratio 0.6 (1-3); Alkaline Phosphatase 714 U/L (35-149); Anion Gap 4 mmol/L (2-11); Blood Urea Nitrogen 9 mg/dL (6-24); CO2 Carbon Dioxide 23 mmol/L (22-32); Calcium 7.4 mg/dL (8.6-10.3); Chloride 109 mmol/L (101-111); Globulin 2.9 g/dL (2-4); Glucose 88 mg/dL (70-100); Sodium 136 mmol/L (135-145); Total Protein 4.6 g/dL (6.4-8.9); eGFR CKD-EPI 97.8 (>60)
[2021-11-30 06:37] LABS: ABS Eosinophils 0.1 10^3/ul (0-0.6); ABS Lymphocytes 1.5 10^3/ul (1.0-4.8); ABS Monocytes 0.7 10^3/ul (0-0.8); ABS Neutrophils 8.7 10^3/ul (1.5-7.7); Eosinophil % 0.5 %; Lymphocyte % 13.7 %
[2021-11-30 06:53] LABS: Hypochromasia 1+; Microcytosis 1+; Polychromasia 1+
[2021-11-30 06:54] LABS: Anisocytosis 2+
[2021-11-30] MEDS: Diphenoxylat/Atrop 2.5-0.025mg TAB PO SCH ×2 (09:18→20:44)
[2021-11-30] MEDS: cefTRIAXone 1 gm/50 mL NS BAG 1 GM/50 ML BAG IVPB SCH (12:03)
[2021-11-30] MEDS: Enoxaparin 40 MG/0.4 ML SYR SUBCUT SCH (16:22)
[2021-11-30] MEDS: diPHENhydraMINE 25 mg TAB PO PRN (20:39)
[2021-12-01] MEDS: NS 0.9% 1000 ml BAG 1,000 ML IV SCH (02:47)
[2021-12-01] MEDS ORDERED: Morphine 2 MG/ML SYRINGE IV PRN (08:05)
[2021-12-01] MEDS: Diphenoxylat/Atrop 2.5-0.025mg TAB PO SCH ×2 (08:57→21:10)
[2021-12-01] MEDS ORDERED: fentaNYL PATCH 12 MCG/HR 1 PATCH TRANSDERM SCH (12:00)
[2021-12-01] MEDS: Enoxaparin 40 MG/0.4 ML SYR SUBCUT SCH (16:25)
[2021-12-01] MEDS: fentaNYL Patch Check Q Shift NOTE FOLLOW UP SCH (18:57)
[2021-12-02] MEDS: fentaNYL Patch Check Q Shift NOTE FOLLOW UP SCH ×2 (07:04→19:13)
[2021-12-02] MEDS: Morphine ORAL CONCENTRATE 5 MG/0.25 ML ORAL.SYRIN PO PRN ×2 (09:30→22:22)
[2021-12-02] MEDS: Diphenoxylat/Atrop 2.5-0.025mg TAB PO SCH (09:32)
[2021-12-02] MEDS ORDERED: Magnesium Hydroxide LIQ 30 ML UDC PO PRN (10:40)
[2021-12-02] MEDS ORDERED: Iron Sucrose 200 MG in NS 0.9% 100 ml BAG 100 ML IVPB ONE (11:30)
[2021-12-02] MEDS: Enoxaparin 40 MG/0.4 ML SYR SUBCUT SCH (15:41)
[2021-12-02] MEDS: diPHENhydraMINE 25 mg TAB PO PRN (16:58)
[2021-12-03] MEDS: diPHENhydraMINE 25 mg TAB PO PRN (06:06)
[2021-12-03] MEDS: Morphine ORAL CONCENTRATE 5 MG/0.25 ML ORAL.SYRIN PO PRN ×2 (06:13→10:53)
[2021-12-03] MEDS: fentaNYL Patch Check Q Shift NOTE FOLLOW UP SCH (07:34)
[2021-12-03 10:52] VITALS: BP 113/67
[2021-12-03 11:14] LABS: Rapid COVID-19 Molecular Undetected (Undetected)
== END 2021-12-03 12:35 | disposition hospice, inpatient (51) | DRG 872 ==
LOC: CHOA 12:05 → MED 15:05
PROVIDERS: ADMIT Internal Medicine Hematology & Oncology; ATTEND Internal Medicine Medical Oncology